=== PATIENT | female | born 1955 | race Caucasian/White ===

== ENCOUNTER 2019-12-03 17:00 | Outpatient (CLI) | payer BC, SELFPAY ==
--- NOTE | ~2019-12-03 | XR_ITS ---
EXAMINATION: XR chest 2V, XR chest BI decubitus DATE: 12/03/2019 17:31 INDICATION: Right lower lobe lung cancer presenting with shortness of breath. TECHNIQUE: 1. PA and lateral views of the chest were obtained. 2. Left and right lateral decubitus views of the chest were obtained. COMPARISON: 05/09/2017 FINDINGS: Postoperative changes in the right lower lobe with streaky likely scarring extending from the hilum t owards a suture line at the central aspect of the right hemidiaphragm. There is some blunting at the right costophrenic angle which persists on the left lateral decubitus image and without blunting at t he posterior sulci consistent with pleural parenchymal scarring rather than pleural effusion. No othe r airspace opacities, pulmonary edema, pleural effusion or pneumothorax. The cardiomediastinal silhou ette is normal. Partially visualized abdominal aortic endoluminal stent graft. Moderate thoracic spon dylosis. IMPRESSION: 1. Suture line and scarring at the right lung base likely related to resection of a reported right lo wer lobe lung cancer. No other acute cardiopulmonary disease. Reviewed, dictated and finalized at location A. TENDER IMPRESSION: 1. Suture line and scarring at the right lung base likely related to resection of a reported right lower lobe lung cancer. No other acute cardiopulmonary dise ase.
== END 2019-12-03 17:01 | disposition home or self-care (01) ==
LOC: ANHIMG 17:03
PROVIDERS: PCP Family Medicine; Visit Provider Family Medicine
DX: C34.90 Malignant neoplasm of unspecified part of unspecified bronchus or lung (principal); J44.9 Chronic obstructive pulmonary disease, unspecified; R06.02 Shortness of breath; Z98.890 Other specified postprocedural states
CPT/HCPCS: 71045; 71046

== ENCOUNTER 2019-12-29 10:49 | Outpatient (CLI) | payer BC, SELFPAY ==
--- NOTE | ~2019-12-29 | PE_ITS ---
EXAMINATION: PET skull to mid thigh DATE: 12/29/2019 13:06 INDICATION: Lung nodule. TECHNIQUE: Blood glucose level was 96 mg/dL. 7.929 mCi of 18-fluorodeoxyglucose (18-FDG) was administ ered i.v. Low dose computed tomography (CT) images were acquired from the base of the brain to the pr oximal thighs for attenuation correction and anatomic localization. Automated exposure control was em ployed. Dose-length product (DLP) was 1193 mGy-cm. Positron emission tomography (PET) images were acq uired in the same distribution. COMPARISON: PET/CT 03/16/2019, chest CT 02/03/2019, abdomen and pelvis CT 05/09/2017, chest 2 views 020 FINDINGS: Head/neck: There is increased activity in the glottis without CT correlate, likely physiologic. There is a 2.0 x 1.5 cm right supraclavicular lymph node with maximum SUV of 12.3. There are normal-sized left supraclavicular nodes with mildly increased activity. Chest: There is mild emphysema. There are small pleural effusions. There is an ill-defined right kuldip r mass with increased activity with complete collapse of right middle lobe with increased activity. T here are greater than 50 scattered nodules in the lungs measuring up to 10 mm. Some of the nodules de monstrate increased activity. There are mild patchy ground glass opacities scattered in the lungs. Th e heart size is normal. There are coronary artery calcifications. There is a moderate-sized pericardi al effusion. There is mediastinal and bilateral hilar lymphadenopathy with increased activity. There is a normal-sized right axillary lymph node with increased activity. There are normal-sized and mildl y enlarged pericardial lymph nodes with increased activity. There are numerous scattered foci of inc reased activity in bone without CT correlate. There is increased activity in right anterior third rib correlating with a lytic lesion by CT. Abdomen/pelvis/proximal thighs: There are innumerable ill-defined masses scattered in the liver with increased activity. The spleen, pancreas, and adrenal glands are normal. The kidneys are normal. Ther e is a stable 5.1 cm fusiform aneurysm of infrarenal aorta with stent graft in expected position. The re is gastrohepatic, periceliac, periportal, and aortocaval lymphadenopathy with increased activity. There are numerous scattered foci of increased activity in bone without CT correlate. IMPRESSION: 1. Right lung hilar mass, pulmonary nodules, liver masses, bone lesions, and chest and abdominal lymp hadenopathy, consistent with metastatic disease. 2. Right lung middle lobe collapse, new from 12/03/2019. Increased activity in the right middle lobe preciado ggests postobstructive pneumonia. Reviewed, dictated and finalized at location A. E SCIENTIST IMPRESSION: 1. Right lung hilar mass, pulmonary nodules, liver masses, bone lesions, and ch est and abdominal lymphadenopathy, consistent with metastatic disease. 2. Right lung middle lobe collapse, new from 12/03/2019. Increased activity in th e right middle lobe suggests postobstructive pneumonia.
[2019-12-29 11:39] LABS: Glucose Point of Care 96 (65-105)
== END 2019-12-29 10:50 | disposition home or self-care (01) ==
PROVIDERS: PCP Family Medicine
DX: R91.1 Solitary pulmonary nodule (principal); Z85.118 Personal history of other malignant neoplasm of bronchus and lung; R91.8 Other nonspecific abnormal finding of lung field; R16.0 Hepatomegaly, not elsewhere classified; M89.9 Disorder of bone, unspecified; R59.0 Localized enlarged lymph nodes; J98.19 Other pulmonary collapse
CPT/HCPCS: 78815; A9552

== ENCOUNTER 2020-01-23 15:59 | Inpatient (IN) | payer BC, SELFPAY ==
[2020-01-23] VITALS (11 sets, daily range): BP systolic 104–132; BP diastolic 56–84; PULSE 55–115; RESP 20–29; TEMP 36.7–36.9; O2SAT 94–99; BMI 39.4
--- NOTE | ~2020-01-23 | XR_ITS ---
XR chest 1V portable DATE: 01/26/2020 08:30 INDICATION: Respiratory failure. Hypoxemia. Pneumonia. TECHNIQUE: Portable upright AP chest on 01/26/2020 at 0829 hours COMPARISON: 01/25/2020 portable AP chest at 1409 hours 01/23/2020 portable AP chest 12/03/2019 bilateral decubitus views 12/03/2021 view chest FINDINGS: Since 12/03/2019 there is pulmonary vascular and interstitial prominence suggesting congestiv e changes, pulmonary interstitial edema. There are patchy bilateral pulmonary infiltrates, most promi nent in the mid and lower lung zones and interval prominent right pleural effusion and associated rig ht lower lung atelectasis. Heart size appears within normal limits. Diffuse osteopenia. IMPRESSION: Pulmonary vascular and interstitial prominence and extensive patchy infiltrates in the bartolome ngs and prominently increased right pleural effusion since 12/03/2019. Different diagnosis includes con gestive changes, pulmonary edema, as well as pneumonia. Reviewed, dictated and finalized at location B. IMPRESSION: Pulmonary vascular and interstitial prominence and extensive patchy infiltrates in the lungs and prominently increased right pleural effusion sinc e 12/03/2019. Different diagnosis includes congestive changes, pulmonary edema, a s well as pneumonia.
--- NOTE | ~2020-01-23 | XR_ITS ---
EXAMINATION: XR chest 1V portable INDICATION: Increased shortness of breath TECHNIQUE: Portable AP chest at 1409 hours COMPARISON: 01/23/2020 FINDINGS: There is a stable moderate-sized right pleural effusion. Stable airspace opacities are pres ent in the mid and lower lung zones. There is no pneumothorax. The heart size is normal. Multiple sta ble pulmonary nodules are again identified, consistent with metastatic disease. IMPRESSION: 1. Stable airspace opacities of the mid and lower lung zones, consistent with atelectasis versus pneu monia. 2. Moderate-sized left pleural effusion, stable. Reviewed, dictated and finalized at location A. IMPRESSION: 1. Stable airspace opacities of the mid and lower lung zones, consistent with a telectasis versus pneumonia. 2. Moderate-sized left pleural effusion, stable.
--- NOTE | ~2020-01-23 | XR_ITS ---
EXAMINATION: XR chest 1V portable DATE: 01/23/2020 17:00 INDICATION: Shortness of breath. TECHNIQUE: A single frontal view of the chest was obtained. COMPARISON: Chest 2 views 12/03/2019, PET CT 12/29/2019 FINDINGS: There is a moderate-sized right pleural effusion. There are airspace opacities at the lung bases. There are scattered nodules throughout the lungs. No pneumothorax. The heart size is normal. IMPRESSION: 1. Worsened airspace opacities at right lung base, consistent with atelectasis versus pneumonia. 2. Worsened moderate-sized right pleural effusion 3. Widespread pulmonary nodules, consistent with metastatic disease. Reviewed, dictated and finalized at location A.
--- NOTE | 2020-01-23 16:07 | ED.SOB ---
HPI - SOB/Dyspnea General Chief Complaint: Shortness of Breath/Dyspnea Stated Complaint: sob Time Seen by Provider: 01/23/20 16:07 Source: patient and RN notes reviewed Mode of arrival: EMS Limitations: no limitations History of Present Illness HPI Narrative: Pt is a 64 y/o female with a Hx of COPD and lung cancer, who presents to the ED via EMS with c/o SOB starting several weeks ago. She notes that she developed a complete rt pneumothorax secondary to a chest surgery roughly one month ago. Pt states that she has had difficulty breathing ever since, and notes that she hasn't been able to receive her prescribed breathing treatments due to an insurance complication. She reports diaphoresis accompanying her SOB, but denies any CP, fever, chills, or productive cough. Pt states that she hasn't been able to sleep for the past 3 days due to her symptoms. She notes that she is currently following with an oncologist at [facility]. MD elicited complaint: shortness of breath Pertinent past history: COPD and other (lung cancer) Onset (ago): week(s) (several) Context: other (recent rt pneumothorax) Known history of: COPD and other (lung cancer) Associated symptoms: diaphoresis Related Data Home Medications Medication Instructions Recorded Confirmed gabapentin 300 mg capsule 300 mg PO TID 10/01/19 hydrocodone 5 mg-acetaminophen 325 1 tablet PO Q6H PRN 10/01/19 mg tablet meloxicam 15 mg tablet 15 mg PO DAILY PRN 10/01/19 tizanidine 4 mg capsule 4 mg PO ONCE PRN cap 10/01/19 Allergies Allergy/AdvReac Type Severity Reaction Status Date / Time No Known Allergies Allergy Verified 01/23/20 16:03 Review of Systems Review of Systems: All systems reviewed & are unremarkable except as noted in HPI and below Constitutional: Constitutional: Denies chills and Denies fever(s) Cardiovascular: Cardiovascular: Denies chest pain and Reports diaphoresis Respiratory: Respiratory: Denies cough and Reports dyspnea PMFSH Past Medical History Medical History Abdominal aortic aneurysm (AAA) greater than 5.0 cm in diameter in female 11-18-19 endovascular repair with raji/ Walter Garcia M.D. Cervical dysplasia (~1989) Closed fracture of left wrist (~2006) COPD (chronic obstructive pulmonary disease) Depression with anxiety Fatty liver HLD (hyperlipidemia) LGSIL (low grade squamous intraepithelial dysplasia) Non-small cell lung cancer Pneumothorax, right Splenic cyst Squamous cell hyperplasia of vulva Surgical History Surgical History H/O wrist surgery History of colposcopy (~2001) History of endovascular stent graft for abdominal aortic aneurysm (AAA) 5cm infrarenal/ 09-14-19 endovascular repair with stent/ Walter Garcia M.D. History of lung surgery non small cell cancer/ resected 2018 Hx of spinal surgery Hx of tonsillectomy Family History Family History (Updated 08/28/18 @ 10:19 by DOCTOR UNKNOWN) Mother Hypertension Family history of elevated blood lipids Grandparent Carcinoma of colon Family history of malignant neoplasm of male breast Family history of malignant neoplasm of breast Social History Social History Smoking status: Current every day smoker Second hand tobacco smoke exposure: No Alcohol intake: current Exam Narrative: Exam Narrative: GENERAL: ill-appearing, well-nourished, and in moderate distress. HEAD: Normocephalic, atraumatic. ENT: Mucous membranes moist. CHEST: Diffused wheezing. Moderate respiratory distress. HEART: Tachycardic and regular. Normal peripheral pulses. ABDOMEN: Soft, nontender, nondistended. EXTREMITIES: Normal range of motion. No edema. SKIN: Warm, dry, no rash. NEURO: Alert and oriented x3. PSYCH: Normal mood and affect. Course Course Emergency Course: Unable to get the patient transferred to [facility]
[2020-01-23 16:09] LABS: Base Excess ABG 4.3 mEq/l (+/-2.0); Fractional Inspired Oxygen 40 %; HCO3 ABG 27.9 mEq/l (22.0-26.0); Methemoglobin ABG 0.3 %THb (0-1.5); Oxygen Content ABG 17.6 %vol (16.0-22.0); Oxygen Saturation ABG 96.6 % (95.0-100.0); PCO2 ABG 38.2 mmHg (35.0-45.0); PO2 ABG 80.3 mmHg (80.0-100.0); PO2 FiO2 Ratio Arterial Blood 2.01 %; Reduced Hemoglobin 4.7 %THb (0-5.0); Total Hemoglobin 13.3 g/dL (12.0-18.0); pH ABG 7.481 (7.350-7.450)
[2020-01-23 16:10] LABS: Device NON-INVASIVE VENT; Modified Allen's Test Pass; Site Drawn LEFT RADIAL
[2020-01-23 16:11] LABS: Non-Invasive Expiratory Pressure 6 CMH2O; Non-Invasive Inspiratory Pressure 14 CMH2O; Non-Invasive Vent Rate 4 /MIN
[2020-01-23] MEDS: ALBUTEROL SULFATE NEB 2.5 MG/0.5 ML INH 5 MG INHALATION (16:16)
[2020-01-23] MEDS: IPRATROPIUM BR 0.02% INH SOLN 0.5 MG/2.5 ML VIAL INHALATION (16:16)
--- NOTE | 2020-01-23 16:26 | ECG_ITS ---
Measurements Intervals [place] Rate: 108 P: 16 WI: 145 QRS: 263 QRSD: 86 T: -16 QT: 315 QTc: 423 Interpretive Statements SINUS TACHYCARDIA VENTRICULAR PREMATURE COMPLEX RIGHT AXIS DEVIATION LOW QRS VOLTAGE- DIFFUSE LEADS BORDERLINE T WAVE ABNORMALITY- ANT/INF LEADS BASELINE ARTIFACT- I, II, III, AVR, AVL, AVF, V5-V6 ABNORMAL ECG Electronically Signed On 01-24-2020 7:45:23 CDT by Thomas Yeung D.O.
[2020-01-23 16:40] LABS: Basophils Absolute Auto 0.2 K/mm3 (0.0-0.1); Basophils Percent Auto 0.6 % (0.2-1.2); Eosinophils Absolute Auto 3.2 K/mm3 (0-0.3); Eosinophils Percent Auto 11.4 % (0-4.4); Hematocrit 41.6 % (37.0-47.0); Hemoglobin 12.8 g/dL (12.0-15.0); Immature Granulocyte Absolute 1.23 K/mm3 (0.00-0.031); Immature Granulocyte Percent A 4.4 % (0-0.5); Lymphocytes Absolute Auto 0.59 K/mm3 (0.9-3.2); Lymphocytes Percent Auto 2.1 % (18.3-44.2); Mean Corpuscular HGB Conc 30.8 g/dl (32-36); Mean Corpuscular Volume 84.4 fl (80-100); Mean Platelet Volume 11.1 fl (7.4-10.4); Monocytes Absolute Auto 0.9 K/mm3 (0.1-0.6); Neutrophils Percent Auto 78.5 % (45.5-73.1); Platelet Count Result 171 k/mm3 (150-375); Red Blood Count 4.93 M/mm3 (4.2-5.4); Red Cell Distribution Width 17.1 % (11.5-14.5)
[2020-01-23 16:53] LABS: Alanine Aminotransferase 24 U/L (4-35); Albumin Level 3.1 g/dL (3.5-5.1); Alkaline Phosphatase 263 U/L (38-126); Aspartate Amino Transferase 27 U/L (14-36); Bilirubin,Total 0.5 mg/dL (0.2-1.3); Blood Urea Nitrogen 15 mg/dL (7-17); Calcium 7.8 mg/dL (8.4-10.2); Carbon Dioxide 27 mmol/L (22-30); Chloride 98 mmol/L (98-107); Estimated CRCL calculation 74 ml/min; Estimated Glomerular Filt Rate > 60; Glucose 191 mg/dL (65-105); Potassium 2.9 mmol/L (3.4-5.0); Sodium 137 mmol/L (137-145)
[2020-01-23 18:05] LABS: Lactic Acid Reflex 3.4 mmol/L (0.7-2.1)
[2020-01-23 20:53] LABS: Reflex Lactic Acid Yes or No Add Lactic
--- NOTE | 2020-01-23 21:20 | ADMGEN ---
This patient, Anjali Basurto, was admitted to IMU Room 214-01 at 2052 on 01-23-20. Patient/family oriented to hospital policies and general routines including ID bracelet, bed and alarms, visiting hours, pain management, procedures, bathroom and other care routines, personal items, smoking policy, room service/diet, and visiting hours. Valuables list has been completed. Information on how to activate the Rapid Response Team has been discussed. Patient/Family are encouraged to report perceived risks to care and to ask questions if they do not understand what they are told or what they should do.
[2020-01-23 21:55] LABS: Lactic Acid 3.6 mmol/L (0.7-2.1)
[2020-01-23] MEDS: SODIUM CHLORIDE 0.9% IV 1,000 ML 125 ML IV CONT (22:41)
--- NOTE | 2020-01-23 23:19 | PM.IMHP ---
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 The patient is known to have Stage IV NSCLC with multiple bilateral pulmonary nodules, adenopathy and followed by Dr. Jensen. She tells me that she was intubated and placed on mechanical ventilation at [facility] while she was there. She has completed 10 sessions of radiation therapy for her lung cancer and her last session was last week. She was on Zosyn IV while she was at [facility] and just completed a course of augmentin 1 week ago. Today she took her final prednisone tablet. The patient presented to the hospital today complaining of severe dyspnea that has been progressive in nature. She has not been able to get home oxygen or receive her respiratory treatment because of insurance issues. On arrival to the ER the patient was found to be severely dyspneic, diaphoretic w/ a RR in the upper 20s. The patient has had an ongoing productive cough which she states hasn't changed. Associated symptoms include pleuritic rib discomfort w/ coughing and wheezing++ She denies any chest pain, fever, palpitations, sore throat, headache, nausea, vomiting, abdominal pain, diarrhea, rectal bleeding or LE pain/redness. She just underwent LE doppler U/S yesterday at [facility] but doesn't know the results. The patient was admitted to our hospitalist service for her acute respriatory failure. No other complaints. Review of Systems Review of Systems: All systems reviewed & are unremarkable except as noted in HPI and below PMFSH Past Medical History Medical History Abdominal aortic aneurysm (AAA) greater than 5.0 cm in diameter in female 11-18-19 endovascular repair with raji/ Walter Garcia M.D. Acute respiratory failure Cervical dysplasia (~1989) Closed fracture of left wrist (~2006) COPD (chronic obstructive pulmonary disease) Depression with anxiety Fatty liver HLD (hyperlipidemia) LGSIL (low grade squamous intraepithelial dysplasia) Non-small cell lung cancer Pneumothorax, right Splenic cyst Squamous cell hyperplasia of vulva Surgical History Surgical History H/O wrist surgery History of colposcopy (~2001) History of endovascular stent graft for abdominal aortic aneurysm (AAA) 5cm infrarenal/ 09-14-19 endovascular repair with stent/ Walter Garcia M.D. History of lung surgery non small cell cancer/ resected 2019 Hx of spinal surgery Hx of tonsillectomy Family History Family History Mother Hypertension Family history of elevated blood lipids Grandparent Carcinoma of colon Family history of malignant neoplasm of male breast Family history of malignant neoplasm of breast Social History Social History Smoking status: Former smoker Tobacco type: cigarettes Second hand tobacco smoke exposure: Yes Smoking end date: 11/28/19 Alcohol intake: former Substance use: never Spiritual care concerns: No Agree to blood products: Yes Meds Home Medications and Allergies Home Medications Medication Instructions Recorded Confirmed Type gabapentin 300 mg capsule 300 mg PO TID 10/01/19 01/23/20 History hydrocodone 5 mg-acetaminophen 325 1 tablet PO Q6H PRN 10/01/19 01/23/20 History mg tablet meloxicam 15 mg tablet 15 mg PO DAILY PRN 10/01/19 01/23/20 History tizanidine 4 mg capsule 4 mg PO DAILY PRN cap 10/01/19 01/24/20 History atorvastatin 80 mg tablet 80 mg PO DAILY #90 tablet 11/03/19 01/23/20 Rx duloxetine 30 mg capsule,delayed 60 mg PO DAILY
[2020-01-23] MEDS: LORAZEPAM INJ 2 MG/ML VIAL 0.5 MG IV PUSH (23:29)
[2020-01-24] VITALS (26 sets, daily range): BP systolic 85–117; BP diastolic 42–79; PULSE 71–183; RESP 16–29; TEMP 35.7–36.9; O2SAT 92–98
[2020-01-24] MEDS: GABAPENTIN 300 MG CAPSULE PO ×4 (00:54→16:02)
[2020-01-24] MEDS: IPRATROPIUM BR 0.02% INH SOLN 0.5 MG/2.5 ML VIAL INHALATION ×3 (01:41→20:08)
[2020-01-24] MEDS: ALBUTEROL SULFATE NEB 2.5 MG/0.5 ML INH 5 MG INHALATION ×3 (01:41→20:08)
--- NOTE | 2020-01-24 07:43 | ECG_ITS ---
Measurements Intervals [place] Rate: 162 P: SD: 0 QRS: 85 QRSD: 94 T: 0 QT: 220 QTc: 362 Interpretive Statements ATRIAL FIBRILLATION WITH RAPID VENTRICULAR RESPONSE LOW QRS VOLTAGE- LIMB LEADS BORDERLINE ST-T WAVE ABNORMALITY- INF/LAT LEADS ABNORMAL ECG Electronically Signed On 01-24-2020 14:49:38 CDT by Thomas Yeung D.O.
[2020-01-24 08:24] LABS: Hemoglobin A1C 6.2 % (<5.7)
[2020-01-24] MEDS: FOLIC ACID 1 MG TABLET PO (08:44)
[2020-01-24] MEDS: ATORVASTATIN 40 MG TABLET 80 MG PO (08:44)
[2020-01-24] MEDS: DULOXETINE HCL 30 MG CAPSULE.DR 60 MG PO (08:44)
[2020-01-24] MEDS: CLOTRIMAZOLE 10 MG TROC MUCOUS MEM ×4 (08:44→17:18)
[2020-01-24 09:35] LABS: Hemoglobin 12.8 g/dL (12.0-15.0); Mean Corpuscular HGB Conc 28.4 g/dl (32-36); Mean Corpuscular Hemoglobin 25.9 pg (26-34); Mean Corpuscular Volume 91.1 fl (80-100); Platelet Count Result 149 k/mm3 (150-375); Red Blood Count 4.94 M/mm3 (4.2-5.4); Red Cell Distribution Width 17.6 % (11.5-14.5); White Blood Count 27.5 K/mm3 (4.5-10.0)
--- NOTE | 2020-01-24 09:38 | WPDONCCN ---
Assessment and Plan Assessment and plan (1) Acute respiratory failure: Qualifiers: Respiratory failure complication: hypoxia Qualified Code(s): J96.01 - Acute respiratory failure with hypoxia Code(s): J96.00 - Acute respiratory failure, unspecified whether with hypoxia or hypercapnia Status: Acute Assessment and Plan: THE PATIENT HAS HAD A VERY TENUOUS RESPIRATORY STATUS FOR SOME TIME. Her current deterioration is probably in part due to atelectasis plus pneumonia and slowly progressive lung cancer. She continues to smoke. I agree with pulmonary consultation and intravenous antibiotics. I think we should follow her C reactive protein to see if he gets better with antibiotics. I think she should be considered for inpatient Keytruda immunotherapy. She may have to be transferred to [facility] back under the care of to accomplish that. Her PDL1 is with very high and it is likely that this immunotherapy despite having active infection may be much more beneficial than harmful even in the very short time frame. We will follow this patient with you. HPI Data of Consult Date/Time: 01/24/20 09:38 Requesting Physician: Jones Montgomery MD Primary Care Provider: Padmaja Chester MD Consult Narrative Narrative: Anjali Basurto is a 64 year old female With metastatic non-small cell lung cancer followed by Dr. Dong. She finished radiation therapy for recent recurrence. She had a recent pneumonia that required hospitalization. She was due to start Keytruda tomorrow. She was admitted with respiratory failure. We were consulted for suspicion of progressive non-small cell lung cancer and leukocytosis.She has had leukocytosis since her admission earlier this month at the outside hospital. She was on steroids. These were being tapered. She had leukocytosis at presentation to the emergency room here at [facility] which time she had evidence of probable pneumonia. Her white blood count actually is lower than what it was measured on 01/11/2020. She has predominantly neutrophils as anticipated with pneumonia. Review of Systems Constitutional: Constitutional: Reports weakness ENT: Reports system reviewed and no additional complaints, except as documented Cardiovascular: Cardiovascular: Reports no additional cardiovascular complaints Respiratory: Respiratory: Reports as per HPI Gastrointestinal: Gastrointestinal: Reports no additional gastrointestinal complaints Genitourinary: Genitourinary: Reports no additional female genitourinary complaints Musculoskeletal: Musculoskeletal: Reports no additional musculoskeletal complaints Integumentary/Breasts: Skin/Breast: Reports system reviewed and no additional complaints, except as docu Neurologic: Reports system reviewed and no additional complaints, except as documented Psychiatric: Psychiatric: Reports no additional psychiatric complaints PMFSH Past Medical History Medical History Abdominal aortic aneurysm (AAA) greater than 5.0 cm in diameter in female 09-14-19 endovascular repair with stent/ Walter Garcia M.D. Cervical dysplasia (~1989) Closed fracture of left wrist (~2006) COPD (chronic obstructive pulmonary disease) Depression with anxiety Fatty liver HLD (hyperlipidemia) LGSIL (low grade squamous intraepithelial dysplasia) Non-small cell lung cancer Pneumothorax, right Splenic cyst Squamous cell hyperplasia of vulva Surgical History Surgical History H/O wrist surgery History of colposcopy (~2001) History of endovascular stent graft for abdominal aortic aneurysm (AAA) 5cm infrarenal/ 09-14-19 endovascular repair with stent/ Walter Garcia M.D. History of lung surgery non small cell cancer/ resected 2019 Hx of spinal surgery Hx of tonsillectomy Family History Family History (Reviewed 0
--- NOTE | 2020-01-24 09:43 | PM.CNCAR ---
Assessment and Plan Assessment and plan (1) Acute respiratory failure: Qualifiers: Respiratory failure complication: hypoxia Qualified Code(s): J96.01 - Acute respiratory failure with hypoxia Code(s): J96.00 - Acute respiratory failure, unspecified whether with hypoxia or hypercapnia Status: Acute Assessment and Plan: Due to COPD, possible pneumonia, lung cancer. (2) History of endovascular stent graft for abdominal aortic aneurysm (AAA): Code(s): Z95.828 - Presence of other vascular implants and grafts Status: Acute (3) Mixed hyperlipidemia: Code(s): E78.2 - Mixed hyperlipidemia Status: Chronic (4) Atrial fibrillation: Code(s): I48.91 - Unspecified atrial fibrillation Status: Acute Assessment and Plan: New onset atrial fibrillation with RVR. Due to COPD/respiratory failure and possible sepsis. [id number] 2, therefore, Aspirin EC 325 mg daily will be sufficient to minimize cardioembolism. Given low normal BP, start Amiodarone load and drip to cardiovert to sinus rhythm or at least slow HR. Will add Metoprolol 12.5 mg q 6 hours with parameters to hold if SBP<100 mmHg. History of Present Illness History of Present Illness Consult date/time: 01/24/20 09:43 Reason for consult: New onset Atrial fibrillation with RVR. 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 The patient is known to have Stage IV NSCLC with multiple bilateral pulmonary nodules, adenopathy and followed by Dr. Jensen. She tells me that she was intubated and placed on mechanical ventilation at [facility] while she was there. She has completed 10 sessions of radiation therapy for her lung cancer and her last session was last week. The patient presented to the hospital yesterday complaining of severe dyspnea that has been progressive in nature. She has not been able to get home oxygen or receive her respiratory treatment because of insurance issues. On arrival to the ER the patient was found to be severely dyspneic, diaphoretic w/ a RR in the upper 20s. The patient has had an ongoing productive cough which she states hasn't changed. Associated symptoms include pleuritic rib discomfort w/ coughing and wheezing. Denies fever or chills but she does have night sweats. This morning it was noted on telemetry she went into rapid atrial fibrillation in 170-180 bpm and she is in it currently with low normal BP. She normally can walk only minimal distance due to chronic DRAKE. She quit smoking in Nov 2019. She had lexiscan nuclear stress test on 09/09/19 which was normal without ischemia. Her echo on 09/09/19 which were essentially normal with EF 60-65%, mild LVH, grade I diastolic dysfunction (E/e' 8). PET scan on 12/29/19 shows right hilar mass, pulm nodules, liver massess, bone lesions, chest and abdominal lymphadenopathy c/w metastasis, and right lung middle lobe collapse and increase activity in RML s/o postobstructive pneumonia. Reason For Visit: pneumonia, lung ca, acute respiratory failure Review of Systems Review of Systems: All systems reviewed & are unremarkable except as noted in HPI and below Constitutional: Constitutional: Denies chills and Reports night sweats Cardiovascular: Cardiovascular: Reports as per HPI, Reports chest pain and Denies leg edema Respiratory: Respiratory: Reports as per HPI, Reports cough, Reports dyspnea on exertion and Reports wheezing Gastrointestinal: Gastrointestinal: Reports as per HPI and Denies abdominal pain Genitourinary: Genitourinary: Reports as per HPI Neurologic: Reports as per HPI and Denies Abnormal speech present PMFSH Past Medical Histo
[2020-01-24 09:49] LABS: Alanine Aminotransferase 19 U/L (4-35); Albumin Level 2.7 g/dL (3.5-5.1); Alkaline Phosphatase 216 U/L (38-126); Aspartate Amino Transferase 22 U/L (14-36); Bilirubin,Total 0.4 mg/dL (0.2-1.3); Blood Urea Nitrogen 13 mg/dL (7-17); Calcium 7.7 mg/dL (8.4-10.2); Carbon Dioxide 22 mmol/L (22-30); Chloride 106 mmol/L (98-107); Estimated CRCL calculation 69 ml/min; Estimated Glomerular Filt Rate > 60; Glucose 144 mg/dL (65-105); Magnesium 2.5 mg/dL (1.6-2.3); Potassium 3.4 mmol/L (3.4-5.0); Sodium 139 mmol/L (137-145)
[2020-01-24 09:57] LABS: Glucose Point of Care 129 (65-105)
[2020-01-24] MEDS: AMIODARONE 150 MG/D5W 100 ML 150 MG/100 ML BAG 600 MG IV CONT (10:05)
[2020-01-24] MEDS: AMIODARONE 360 MG/D5W 200 ML 360 MG/200 ML BAG 33.3 MG IV CONT (10:05)
[2020-01-24] MEDS: SODIUM CHLORIDE 0.9% IV 1,000 ML 125 ML IV CONT (10:06)
--- NOTE | 2020-01-24 10:35 | ECG_ITS ---
Measurements Intervals [place] Rate: 91 P: -24 IN: 153 QRS: 80 QRSD: 89 T: 65 QT: 348 QTc: 430 Interpretive Statements SINUS RHYTHM VENTRICULAR PREMATURE COMPLEX LOW QRS VOLTAGE- DIFFUSE LEADS BORDERLINE ST-T WAVE ABNORMALITY- DIFFUSE LEADS BASELINE WANDER- V6 BORDERLINE ECG Electronically Signed On 01-24-2020 14:52:36 CDT by Thomas Yeung D.O.
[2020-01-24 11:42] LABS: Glucose Point of Care 119 (65-105)
--- NOTE | 2020-01-24 15:53 | PM.CNPUL ---
Assessment and Plan Assessment and plan (1) Pneumonia: Qualifiers: Laterality: right Lung location: unspecified part of lung Pneumonia type: due to unspecified organism Qualified Code(s): J18.9 - Pneumonia, unspecified organism Code(s): J18.9 - Pneumonia, unspecified organism Status: Acute Assessment and Plan: Bilateral infiltrates in a 64 yo woman with Stage IV lung cancer resected in 2019, 10 radiation treatments this month, with a recent admission to another hospital with pneumonia, hypoxemia, was not able to get out-patient O2 set up. She has high WBC, is being treated for community acquired pneumonia with (2) Acute respiratory failure: Qualifiers: Respiratory failure complication: hypoxia Qualified Code(s): J96.01 - Acute respiratory failure with hypoxia Code(s): J96.00 - Acute respiratory failure, unspecified whether with hypoxia or hypercapnia Status: Acute Assessment and Plan: O2 requirement is modest. She is benefitting from positive pressure, decreasing the work of breathing. Thsi may be acuteon chronic resp failure, as she says that she was not able to get O2 set up at the time of her last discharge Jan 02. History of Present Illness History of Present Illness Consult date: 01/24/20 Requesting physician: Jessica Esparza MD Reason for consult: pneumonia Chief complaint: pneumonia, lung ca, acute respiratory failure Narrative: NEW CONSULT : pneumonia, acute respiratory failure; Stage IV NSCLC This 64 yo female recently stopped smoking Nov 28. She was diagnosed with Stage IV non-small cell lung cancer, managed by Dr. Dong at [facility]. At her Dec 29 visit, she was weak and short of breath, was admitted from the office to [facility] Dec 29 -8 , was not on a vent. She received 10 radiation treatments afterwards, has been feeling weak, short of breath, same cough with small amounts of yellow sputum; she denies fever, chills, N/V/D, loss of smell, change in appetite, sore throat or nasal drainage. 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 She does not have Home O2, or a nebulizer although O2 was going to be arranged at her discharge from [facility]. She uses inhalers here and there, is not on a regular regimen. Lower extremity dopplers were performed yesterday at [facility], results pending. Since arriving here, she has been on BiPAP which makes her feels much better. She says that she can finally breathe with less effort. She wheezes often. Has had no hemoptysis. She Has had pleurititic discomfort in the substernal and left anterior chest wall. 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 Social: Quit tobacco Nov 2019, smoked for decades. Has one child, 5 grandkids. Review of Systems Review of Systems: Narrative: No change in appetitie. No fever, chills, dysphagia, weight loss, N/V/D. No dysuria. No muscle aches, joints pains, rashes. Constitutional: Constitutional: Reports weakness Eyes: Eyes: Reports no additional eye complaints PMFSH Past Medical History Medical History Abdominal aortic aneurysm (AAA) greater than 5.0 cm in diameter in female 09-14-19 endovascular repair with stent/ Walter Garcia M.D. Cervical dysplasia (~1989) Closed fracture of left wrist (~2006) COPD (chronic obstructive pulmonary disease) Depression with anxiety Fatty liver HLD (hyperlipidemia) LGSIL (low grade squamous intraepithelial dysplasia) Non-small cell lung cancer Pneumothorax, right Splenic cyst Squamous cell hyperplasia of vulva Surgical History Surgical History H/O wrist surgery History of colposcopy (~2001) History of endovascular stent graft for abdominal aortic aneurysm (AAA) 5cm infrarenal/ 09-14-19 endovascular repair with raji/ Walter Garcia M.D. H
[2020-01-24] MEDS: AMIODARONE 360 MG/D5W 200 ML 360 MG/200 ML BAG 16.7 MG IV CONT (16:01)
--- NOTE | 2020-01-24 16:09 | PM.IMPN ---
Progress Note: A&P Assessment and Plan (1) Acute respiratory failure: Qualifiers: Respiratory failure complication: hypoxia Qualified Code(s): J96.01 - Acute respiratory failure with hypoxia Code(s): J96.00 - Acute respiratory failure, unspecified whether with hypoxia or hypercapnia Status: Acute Assessment and Plan: 01/24/20 16:09 Patient is 64-year-old female is known to have Stage IV NSCLC with multiple bilateral pulmonary nodules, patient seen by [facility] and being treated, presented emergency department with complaint shortness of breath and cough is found to have multi focal pneumonia possibly obstructive secondary to mass, patient developed new onset atrial fibrillation most likely secondary to shortness of breath patient seen by wax pattern repairer started patient on immune drip now the rate is under control, the patient is feeling much better compared to when she arrived denies any chest pain palpitation fever or chills (2) Severe sepsis: Code(s): A41.9 - Sepsis, unspecified organism; R65.20 - Severe sepsis without septic shock Status: Acute Assessment and Plan: Patient met the criteria upon arrival with leukocytosis tachycardia tachypnea most likely secondary to pneumonia patient is being treated ceftriaxone azithromycin patient is seen by apparatus cleaner and further recommendation to follow (3) Leukocytosis: Qualifiers: Leukocytosis type: unspecified Qualified Code(s): D72.829 - Elevated white blood cell count, unspecified Code(s): D72.829 - Elevated white blood cell count, unspecified Status: Acute Assessment and Plan: Most likely secondary pneumonia (4) Lactic acidosis: Code(s): E87.2 - Acidosis Status: Acute Assessment and Plan: Most likely secondary pneumonia shortness of breath (5) Abnormal glucose: Code(s): R73.09 - Other abnormal glucose Status: Acute Assessment and Plan: Will monitor (6) Emphysema with chronic bronchitis: Code(s): J44.9 - Chronic obstructive pulmonary disease, unspecified Status: Chronic Assessment and Plan: On clinically stable will continue updraft patient is seen by apparatus cleaner (7) Malignant neoplasm of unspecified part of unspecified bronchus or lung: Code(s): C34.90 - Malignant neoplasm of unspecified part of unspecified bronchus or lung Status: Chronic Assessment and Plan: Patient seen by oncologist being treated (8) Mixed hyperlipidemia: Code(s): E78.2 - Mixed hyperlipidemia Status: Chronic Assessment and Plan: Continue statin (9) Atrial fibrillation: Code(s): I48.91 - Unspecified atrial fibrillation Status: Acute Assessment and Plan: New onset atrial fibrillation seen by wax pattern repairer on amiodarone drip rate is trending down [id number] 2, wax pattern repairer started the patient on Aspirin EC 325mg further recommendation to follow, Subjective Date/time seen: 01/24/20 16:09 Patient is 64-year-old female is known to have Stage IV NSCLC with multiple bilateral pulmonary nodules, patient seen by [facility] and being treated, presented emergency department with complaint shortness of breath and cough is found to have multi focal pneumonia possibly obstructive secondary to mass, patient developed new onset atrial fibrillation most likely secondary to shortness of breath patient seen by wax pattern repairer started patient on immune drip now the rate is under control, the patient is feeling much better compared to when she arrived denies any chest pain palpitation fever or chills Review of Systems Review of Systems: All systems reviewed & are unremarkable except as noted in HPI and below Exam Narrative: Exam Narrative: Moderately obese Const: General: no acute distress and uncomfortable HENMT: General nose exam: Normal nares present Mouth: Yes moist mucous membranes Eyes: General:
[2020-01-24 16:39] LABS: Glucose Point of Care 123 (65-105)
[2020-01-24] MEDS: METOPROLOL TARTRATE 12.5 MG TABLET PO (20:14)
[2020-01-24 20:20] LABS: Glucose Point of Care 138 (65-105)
[2020-01-25] VITALS (26 sets, daily range): BP systolic 93–131; BP diastolic 44–80; PULSE 46–158; RESP 20–29; TEMP 35.8–36.6; O2SAT 92–98; BMI 42.7
[2020-01-25] MEDS: IPRATROPIUM BR 0.02% INH SOLN 0.5 MG/2.5 ML VIAL INHALATION ×4 (01:03→20:26)
[2020-01-25] MEDS: ALBUTEROL SULFATE NEB 2.5 MG/0.5 ML INH 5 MG INHALATION ×4 (01:03→20:26)
[2020-01-25] MEDS: AMIODARONE 360 MG/D5W 200 ML 360 MG/200 ML BAG 16.7 MG IV CONT ×2 (02:35→21:46)
[2020-01-25 04:56] LABS: Basophils Absolute Auto 0.1 K/mm3 (0.0-0.1); Basophils Percent Auto 0.5 % (0.2-1.2); Eosinophils Absolute Auto 3.5 K/mm3 (0-0.3); Hematocrit 36.1 % (37.0-47.0); Immature Granulocyte Absolute 1.07 K/mm3 (0.00-0.031); Immature Granulocyte Percent A 4.8 % (0-0.5); Lymphocytes Absolute Auto 0.69 K/mm3 (0.9-3.2); Lymphocytes Percent Auto 3.1 % (18.3-44.2); Mean Corpuscular HGB Conc 30.5 g/dl (32-36); Mean Corpuscular Hemoglobin 25.9 pg (26-34); Mean Corpuscular Volume 85.1 fl (80-100); Mean Platelet Volume 10.9 fl (7.4-10.4); Monocytes Absolute Auto 0.9 K/mm3 (0.1-0.6); Neutrophils Absolute Auto 15.8 K/mm3 (1.3-6.7); Neutrophils Percent Auto 71.6 % (45.5-73.1); Platelet Count Result 140 k/mm3 (150-375); Red Blood Count 4.24 M/mm3 (4.2-5.4); Red Cell Distribution Width 16.8 % (11.5-14.5); White Blood Count 22.1 K/mm3 (4.5-10.0)
[2020-01-25 05:17] LABS: Blood Urea Nitrogen 10 mg/dL (7-17); Calcium 7.5 mg/dL (8.4-10.2); Carbon Dioxide 29 mmol/L (22-30); Chloride 100 mmol/L (98-107); Estimated CRCL calculation 59 ml/min; Estimated Glomerular Filt Rate 56; Glucose 109 mg/dL (65-105); Potassium 2.8 mmol/L (3.4-5.0); Sodium 134 mmol/L (137-145)
[2020-01-25] MEDS: ASPIRIN 325 MG ENTERIC TABLET PO (07:47)
[2020-01-25] MEDS: ATORVASTATIN 40 MG TABLET 80 MG PO (07:47)
[2020-01-25] MEDS: METOPROLOL TARTRATE 12.5 MG TABLET PO ×2 (07:47→21:00)
[2020-01-25] MEDS: TIZANIDINE HCL 4 MG TABLET PO (07:47)
[2020-01-25] MEDS: FOLIC ACID 1 MG TABLET PO (07:48)
[2020-01-25] MEDS: DULOXETINE HCL 30 MG CAPSULE.DR 60 MG PO (07:48)
[2020-01-25] MEDS: GABAPENTIN 300 MG CAPSULE PO ×3 (07:48→16:21)
[2020-01-25 07:56] LABS: Glucose Point of Care 122 (65-105)
--- NOTE | 2020-01-25 08:11 | ECG_ITS ---
Measurements Intervals [place] Rate: 79 P: 34 [place]: 160 QRS: 81 QRSD: 88 T: 70 QT: 383 QTc: 440 Interpretive Statements SINUS RHYTHM LOW QRS VOLTAGE- DIFFUSE LEADS BORDERLINE T WAVE ABNORMALITY- ANT/LAT LEADS BORDERLINE ECG Electronically Signed On 01-25-2020 9:51:01 CDT by Thomas Yeung D.O.
--- NOTE | 2020-01-25 08:56 | PM.PNCARD ---
Progress Note: A&P Assessment and Plan (1) Atrial fibrillation: Code(s): I48.91 - Unspecified atrial fibrillation Status: Acute Assessment and Plan: New onset atrial fibrillation with RVR. Due to COPD/respiratory failure and possible sepsis. [id number] 2, therefore, Aspirin EC 325 mg daily will be sufficient to minimize cardioembolism. Given low normal BP, was started on Amiodarone load and drip to cardiovert to sinus rhythm or at least slow HR, which has restored sinus rhythm with a few recurrences. On Metoprolol 12.5 mg q 12 hours with parameters to hold if SBP<100 mmHg. After 24 hours of Amiodarone drip loading, will change to PO 200 mg BID. Replete potassium. Obtain EKG to check QT interval. (2) Acute respiratory failure: Qualifiers: Respiratory failure complication: hypoxia Qualified Code(s): J96.01 - Acute respiratory failure with hypoxia Code(s): J96.00 - Acute respiratory failure, unspecified whether with hypoxia or hypercapnia Status: Acute (3) Pneumonia: Qualifiers: Laterality: right Lung location: unspecified part of lung Pneumonia type: due to unspecified organism Qualified Code(s): J18.9 - Pneumonia, unspecified organism Code(s): J18.9 - Pneumonia, unspecified organism Status: Acute Assessment and Plan: On antibiotics. (4) Mixed hyperlipidemia: Code(s): E78.2 - Mixed hyperlipidemia Status: Chronic (5) History of endovascular stent graft for abdominal aortic aneurysm (AAA): Code(s): Z95.828 - Presence of other vascular implants and grafts Status: Acute Subjective Date/time seen: 01/25/20 08:56 Reports sob on oxygen but better than yesterday. Denies chest pain except when she coughs. Exam Const: General: no acute distress Neck: Neck: no JVD Carotids: no bruits Resp: Auscultation: rhonchi, wheezes and diminished lung sounds Cardio: Rate: regular rate Rhythm: regular rhythm Heart sounds: no murmurs GI: Inspection: non-distended Neuro: Speech: normal speech Extrem: Right lower extremity: no edema Left lower extremity: no edema Objective Data Vital Signs Vital Signs: Vital Signs - 24 hr 01/24/20 10:00 01/24/20 12:00 03/29/20 13:41 Temperature 96.2 F L Pulse Rate 167 H 99 87 Respiratory Rate 24 H Blood Pressure 98/75 L Pulse Oximetry 95 01/24/20 13:44 01/24/20 13:50 01/24/20 14:00 Temperature Pulse Rate 88 90 91 Respiratory Rate 20 24 H Blood Pressure Pulse Oximetry 97 01/24/20 16:00 01/24/20 17:41 01/24/20 20:00 Temperature 97.5 F L 97.8 F Pulse Rate 92 95 90 Respiratory Rate 16 18 Blood Pressure 89/59 L 98/56 L Pulse Oximetry 92 97 01/24/20 20:08 01/24/20 20:14 01/24/20 20:17 Temperature Pulse Rate 81 90 71 Respiratory Rate 18 18 Blood Pressure Pulse Oximetry 97 01/24/20 20:18 01/24/20 22:00 01/24/20 23:10 Temperature 97.9 F Pulse Rate 79 76 87 Respiratory Rate 18 22 H Blood Pressure 117/79 Pulse Oximetry 95 01/24/20 23:13 01/25/20 00:00 01/25/20 01:04 Temperature Pulse Rate 78 78 88 Respiratory Rate 29 H 29 H 20 Blood Pressure Pulse Oximetry 92 92 01/25/20 01:07 01/25/20 02:00 01/25/20 04:00 Temperature 97.8 F Pulse Rate 78 94 88 Respiratory Rate 23 H 24 H Blood Pressure 114/56 L Pulse Oximetry 92 93 01/25/20 05:31 01/25/20 07:47 01/25/20 07:53 Temperature Pulse Rate 84 102 H 70 Respiratory Rate 26 H Blood Pressure Pulse Oximetry 95 01/25/20 07:55 01/25/20 08:00 Temperature 97 F L Pulse Rate 102 H Respiratory Rate 23 H Blood Pressure 126/55 L Pulse Oximetry 95 94 Intake/Output Intake/Output: Intake & Output 01/22/20 01/23/20 01/24/20 01/25/20 23:59 23:59 23:59 23:59 Intake Total 522 5590 850 Output Total 600 2950 1450 Balance -78 2640 -600 Meds/Results Medications: Active Medications Generic Name Dose Route Start Last Admin Tr
[2020-01-25] MEDS: POTASSIUM CHLORIDE 20 MEQ PACKET (FOR LIQUID) 40 MEQ PO (09:35)
[2020-01-25 10:28] LABS: Base Excess ABG -0.5 mEq/l (+/-2.0); Fractional Inspired Oxygen 40 %; HCO3 ABG 23.5 mEq/l (22.0-26.0); Oxygen Content ABG 15.7 %vol (16.0-22.0); Oxygen Saturation ABG 94.3 % (95.0-100.0); Oxyhemoglobin 91.9 % THb (90.0-100.0); PCO2 ABG 36.7 mmHg (35.0-45.0); PO2 FiO2 Ratio Arterial Blood 1.73 %; Total Hemoglobin 12.1 g/dL (12.0-18.0); pH ABG 7.425 (7.350-7.450)
[2020-01-25 10:30] LABS: Device NON-INVASIVE VENT; Non-Invasive Expiratory Pressure 6 CMH2O; Non-Invasive Inspiratory Pressure 14 CMH2O; Non-Invasive Vent Rate 14 /MIN; Site Drawn LEFT BRACHIAL
[2020-01-25] MEDS: LORAZEPAM INJ 2 MG/ML VIAL 0.5 MG IV PUSH (11:08)
[2020-01-25 11:50] LABS: Glucose Point of Care 123 (65-105)
--- NOTE | 2020-01-25 11:57 | PM.PNPUL ---
Progress Note: A&P Assessment and Plan (1) Acute respiratory failure: Qualifiers: Respiratory failure complication: hypoxia Qualified Code(s): J96.01 - Acute respiratory failure with hypoxia Code(s): J96.00 - Acute respiratory failure, unspecified whether with hypoxia or hypercapnia Status: Acute (2) Pneumonia: Qualifiers: Laterality: right Lung location: unspecified part of lung Pneumonia type: due to unspecified organism Qualified Code(s): J18.9 - Pneumonia, unspecified organism Code(s): J18.9 - Pneumonia, unspecified organism Status: Acute Assessment and Plan: - d/c Ceftriaxone - start Zosyn and Vancomycin for 7-10 days with pharmacy to dose - continue Azithromycin 500 mg daily for 7 days - sputum for gram stain and culture - consider performing a CT chest with IV contrast, may help determine extent of airway obstruction, need for interventional pulmonology and other differentials including radiation pneumonitis and lymphatic spread. - would also recommend restarting systemic steroids. Solumedrol 40 mg IV Q6h (3) Emphysema with chronic bronchitis: Code(s): J44.9 - Chronic obstructive pulmonary disease, unspecified Status: Chronic (4) Malignant neoplasm of unspecified part of unspecified bronchus or lung: Code(s): C34.90 - Malignant neoplasm of unspecified part of unspecified bronchus or lung Status: Chronic (5) Atrial fibrillation: Code(s): I48.91 - Unspecified atrial fibrillation Status: Acute Time Spent With Patient Time with patient: 15 - 25 minutes Subjective Date/time seen: 01/25/20 11:57 Interval history: Pt still feels week, still short of breath, only able to take off BIPAP to eat or drink. Still having cough productive of yellow sputum. CXR shows most likely RLL/RML post obstructive pneumonia but hard to confirm without CT chest. She also has diffuse interstitial changes on the left lung which could represent pneumonia, radiation pneumonitis ( less likely if field of radiation was on right side) and lymphatic spread of malignancy. Review of Systems Review of Systems: All systems reviewed & are unremarkable except as noted in HPI and below Exam Const: General: no acute distress Neck: Neck: supple and no JVD Resp: Auscultation: crackles and diminished lung sounds Cardio: Rhythm: abnormal rhythm Heart sounds: no murmurs GI: Auscultation: normal bowel sounds Neuro: Cognition (Neuro): normal cognition Speech: normal speech Motor exam (neuro): 5/5 motor strength present throughout and Normal motor muscle tone present throughout Extrem: General: normal to inspection, no edema and no pedal edema Objective Data Vital Signs Vital Signs: Vital Signs - 24 hr 01/24/20 12:00 01/24/20 13:41 01/24/20 13:44 Temperature 35.7 C L Pulse Rate 99 87 88 Respiratory Rate 24 H 20 Blood Pressure 98/75 L Pulse Oximetry 95 97 01/24/20 13:50 01/24/20 14:00 01/24/20 16:00 Temperature 36.4 C L Pulse Rate 90 91 92 Respiratory Rate 24 H 16 Blood Pressure 89/59 L Pulse Oximetry 92 01/24/20 17:41 01/24/20 20:00 01/24/20 20:08 Temperature 36.6 C Pulse Rate 95 90 81 Respiratory Rate 18 18 Blood Pressure 98/56 L Pulse Oximetry 97 01/24/20 20:14 01/24/20 20:17 01/24/20 20:18 Temperature Pulse Rate 90 71 79 Respiratory Rate 18 18 Blood Pressure Pulse Oximetry 97 01/24/20 22:00 01/24/20 23:10 01/24/20 23:13 Temperature 36.6 C Pulse Rate 76 87 78 Respiratory Rate 22 H 29 H Blood Pressure 117/79 Pulse Oximetry 95 92 01/25/20 00:00 01/25/20 01:04 01/25/20 01:07 Temperature Pulse Rate 78 88 78 Respiratory Rate 29 H 20 23 H Blood Pressure Pulse Oximetry 92 92 01/25/20 02:00 01/25/20 04:00 01/25/20 05:31 Temperature 36.6 C Pulse Rate 94 88 84 Respiratory Rate 24 H Blood Pressure 114/56 L Pulse Oximetry 93 01/25/20 07:47 01/25/20 07:53
[2020-01-25] MEDS: methylPREDNISolone SOD SUCC 40 MG VIAL IV PUSH ×2 (12:56→16:22)
[2020-01-25 13:14] LABS: Potassium 3.6 mmol/L (3.4-5.0)
--- NOTE | 2020-01-25 14:49 | WPDUROPN2 ---
Subjective Subjective Date/Time Seen: 01/25/20 14:49 I spoke to the nurse about this patient. She is currently admitted with sepsis and bilateral pneumonia. She is on BiPAP. She is having urinary incontinence. She is able to diaper void, but is unable to get up to the toilet regularly. A Garcia catheter was attempted to be placed by the nursing staff for her incontinence. They were unsuccessful due to small introitus. I was contacted. Again she is incontinent but able to void on her own into a diaper. I discussed the situation with the nurse. I would like to avoid risks of urinary tract infection by instrumenting this patient. I would also like to avoid potential exposure of additional healthcare providers in this patient being treated with bilateral pneumonia especially during the ongoing COVID crisis. If she shows signs of urinary retention or skin breakdown from incontinence we can of course readdress this. If this solution is not acceptable I ask that the hospitalist contact me directly to discuss. My phone number is [phone]. Thank you Objective Data Vital Signs Vital Signs: Vital Signs - 24 hr 01/24/20 16:00 01/24/20 17:41 01/24/20 20:00 Temperature 97.5 F L 97.8 F Pulse Rate 92 95 90 Respiratory Rate 16 18 Blood Pressure 89/59 L 98/56 L Pulse Oximetry 92 97 01/24/20 20:08 01/24/20 20:14 01/24/20 20:17 Temperature Pulse Rate 81 90 71 Respiratory Rate 18 18 Blood Pressure Pulse Oximetry 97 01/24/20 20:18 01/24/20 22:00 01/24/20 23:10 Temperature 97.9 F Pulse Rate 79 76 87 Respiratory Rate 18 22 H Blood Pressure 117/79 Pulse Oximetry 95 01/24/20 23:13 01/25/20 00:00 01/25/20 01:04 Temperature Pulse Rate 78 78 88 Respiratory Rate 29 H 29 H 20 Blood Pressure Pulse Oximetry 92 92 01/25/20 01:07 01/25/20 02:00 01/25/20 04:00 Temperature 97.8 F Pulse Rate 78 94 88 Respiratory Rate 23 H 24 H Blood Pressure 114/56 L Pulse Oximetry 92 93 01/25/20 05:31 01/25/20 07:47 01/25/20 07:53 Temperature Pulse Rate 84 102 H 70 Respiratory Rate 26 H Blood Pressure Pulse Oximetry 95 01/25/20 07:55 01/25/20 08:00 01/25/20 08:03 Temperature 97 F L Pulse Rate 102 H 77 Respiratory Rate 23 H 25 H Blood Pressure 126/55 L Pulse Oximetry 95 94 01/25/20 09:58 01/25/20 12:00 01/25/20 13:51 Temperature 96.5 F L Pulse Rate 106 H 87 115 H Respiratory Rate 21 H 25 H Blood Pressure 93/44 L Pulse Oximetry 94 96 01/25/20 13:58 01/25/20 14:01 Temperature Pulse Rate 95 93 Respiratory Rate 25 H Blood Pressure Pulse Oximetry Intake/Output Intake/Output: Intake & Output 01/22/20 01/23/20 01/24/20 01/25/20 23:59 23:59 23:59 23:59 Intake Total 522 5590 1570 Output Total 600 2950 1450 Balance -78 2640 120 Meds/Results Medications: Active Medications Generic Name Dose Route Start Last Admin Trade Name Freq PRN Reason Stop Dose Admin Acetaminophen 650 mg 01/23/20 18:48 Tylenol Tablet PO Q4H PRN Mild Pain (1-3) or Fever Hydrocodone Bitart/Acetaminophen 1 tab 01/23/20 18:48 01/24/20 04:41 [place] 5-325 Mg PO 1 tab Q4H PRN Administration Pain Rated 4-6 Albuterol 5 mg 01/23/20 20:00 01/25/20 13:51 Albuterol Sulf Neb 2.5mg/0.5ml INHALATION 5 mg Q6HRT HERNANDEZ Administration Albuterol 2.5 mg 01/23/20 23:14 Albuterol Sulf Neb 2.5mg/0.5ml INHALATION Q4HRT PRN Shortness Of Breath Amiodarone HCl 200 mg 01/25/20 17:00 Pacerone PO BID HERNANDEZ Aspirin 325 mg 01/25/20 09:00 01/25/20 07:47 Aspirin Ec PO 325 mg QAM HERNANDEZ Administration Atorvastatin Calcium 80 mg 01/24/20 09:00 01/25/20 07:47 Lipitor PO 80 mg DAILY HERNANDEZ Administration Clotrimazole 10 mg 01/24/20 09:00 01/25/20 12:45 Mycelex Fátima MUCOUS MEM Not Given 5 TIMES DAILY HERNANDEZ Dextrose 12.5 gm 01/24/20 06:45 Dextrose 50% Syringe IV PUSH PRN PRN Hypogl
[2020-01-25] MEDS: AMIODARONE HCL 200 MG TABLET PO (16:21)
[2020-01-25 16:33] LABS: Blood Urea Nitrogen 10 mg/dL (7-17); Calcium 7.6 mg/dL (8.4-10.2); Carbon Dioxide 24 mmol/L (22-30); Chloride 100 mmol/L (98-107); Estimated CRCL calculation 65 ml/min; Estimated Glomerular Filt Rate > 60; Glucose 124 mg/dL (65-105); Potassium 3.6 mmol/L (3.4-5.0); Sodium 133 mmol/L (137-145)
[2020-01-25 17:37] LABS: Glucose Point of Care 125 (65-105)
--- NOTE | 2020-01-25 18:25 | PM.IMPN ---
Progress Note: A&P Assessment and Plan (1) Acute respiratory failure: Qualifiers: Respiratory failure complication: hypoxia Qualified Code(s): J96.01 - Acute respiratory failure with hypoxia Code(s): J96.00 - Acute respiratory failure, unspecified whether with hypoxia or hypercapnia Status: Acute Assessment and Plan: Admit to IMU, telemetry, Continue Bipap support and wean off as tolerated. The patient currently 01/25/20 18:25 Patient is 64-year-old female is known to have Stage IV NSCLC with multiple bilateral pulmonary nodules, patient seen by [facility] and being treated, presented emergency department with complaint shortness of breath and cough is found to have multi focal pneumonia possibly obstructive secondary to mass, patient developed new onset atrial fibrillation most likely secondary to shortness of breath patient seen by building trades teacher started patient on immune drip now the rate is under control, the patient was feeling much better compared to when she arrived denies any chest pain palpitation fever or chills, today was called to assess the patient patient was hypoxic on BiPAP consulted rn internal medicine will evaluate the patient and patient may need intubation, after speaking with the patient and giving her option to intubate patient decided against a intubation and has now declare herself DNR, I also spoke with patient's son and informed her mother decision. Patient is clinically stable (2) Severe sepsis: Code(s): A41.9 - Sepsis, unspecified organism; R65.20 - Severe sepsis without septic shock Status: Acute Assessment and Plan: Most likely secondary to pneumonia patient is being treated with Rocephin azithromycin seen by environmental coordinator and added Zosyn (3) Leukocytosis: Qualifiers: Leukocytosis type: unspecified Qualified Code(s): D72.829 - Elevated white blood cell count, unspecified Code(s): D72.829 - Elevated white blood cell count, unspecified Status: Acute Assessment and Plan: Most likely secondary to pneumonia (4) Lactic acidosis: Code(s): E87.2 - Acidosis Status: Acute Assessment and Plan: Most likely 2nd to pneumonia and hypoxia (5) Abnormal glucose: Code(s): R73.09 - Other abnormal glucose Status: Acute Assessment and Plan: Check HgbA1c. (6) Emphysema with chronic bronchitis: Code(s): J44.9 - Chronic obstructive pulmonary disease, unspecified Status: Chronic Assessment and Plan: Patient with a metastasis non small cell carcinoma (7) Malignant neoplasm of unspecified part of unspecified bronchus or lung: Code(s): C34.90 - Malignant neoplasm of unspecified part of unspecified bronchus or lung Status: Chronic (8) Mixed hyperlipidemia: Code(s): E78.2 - Mixed hyperlipidemia Status: Chronic Assessment and Plan: Patient is seen by oncologist and being treated (9) Atrial fibrillation: Code(s): I48.91 - Unspecified atrial fibrillation Status: Acute Assessment and Plan: New onset atrial fibrillation seen by building trades teacher on amiodarone drip rate is trending down [id number] 2, building trades teacher started the patient on Aspirin EC 325mg once clinically stable amiodarone will be switch over to p.o., low-dose metoprolol is added for rate control further recommendation to follow, Subjective Date/time seen: 01/25/20 18:25 Patient is 64-year-old female is known to have Stage IV NSCLC with multiple bilateral pulmonary nodules, patient seen by [facility] and being treated, presented emergency department with complaint shortness of breath and cough is found to have multi focal pneumonia possibly obstructive secondary to mass, patient developed new onset atrial fibrillation most likely secondary to shortness of breath patient seen by building trades teacher started patient on immune drip now the rate is under control, the patient was feeling
[2020-01-25] MEDS: CLOTRIMAZOLE 10 MG TROC MUCOUS MEM (21:00)
[2020-01-25 21:03] LABS: Glucose Point of Care 146 (65-105)
[2020-01-26] VITALS (32 sets, daily range): BP systolic 110–136; BP diastolic 52–65; PULSE 73–150; RESP 19–28; TEMP 35.7–36.8; O2SAT 91–98
[2020-01-26] MEDS: methylPREDNISolone SOD SUCC 40 MG VIAL IV PUSH ×5 (01:10→23:32)
[2020-01-26] MEDS: IPRATROPIUM BR 0.02% INH SOLN 0.5 MG/2.5 ML VIAL INHALATION ×4 (02:34→20:54)
[2020-01-26] MEDS: ALBUTEROL SULFATE NEB 2.5 MG/0.5 ML INH 5 MG INHALATION ×4 (02:34→20:54)
[2020-01-26 07:06] LABS: Hematocrit 38.8 % (37.0-47.0); Hemoglobin 11.5 g/dL (12.0-15.0); Mean Corpuscular HGB Conc 29.6 g/dl (32-36); Mean Corpuscular Hemoglobin 25.7 pg (26-34); Mean Corpuscular Volume 86.6 fl (80-100); Mean Platelet Volume 11.8 fl (7.4-10.4); Platelet Count Result 125 k/mm3 (150-375); Red Blood Count 4.48 M/mm3 (4.2-5.4); Red Cell Distribution Width 17.2 % (11.5-14.5); White Blood Count 16.8 K/mm3 (4.5-10.0)
[2020-01-26 07:08] LABS: Blood Urea Nitrogen 10 mg/dL (7-17); Calcium 7.6 mg/dL (8.4-10.2); Carbon Dioxide 28 mmol/L (22-30); Chloride 104 mmol/L (98-107); Estimated CRCL calculation 82 ml/min; Estimated Glomerular Filt Rate > 60; Glucose 127 mg/dL (65-105); Potassium 3.6 mmol/L (3.4-5.0); Sodium 138 mmol/L (137-145)
--- NOTE | 2020-01-26 07:36 | ECG_ITS ---
Measurements Intervals [place] Rate: 94 P: 48 MA: 163 QRS: 89 QRSD: 88 T: 70 QT: 316 QTc: 397 Interpretive Statements SINUS RHYTHM VENTRICULAR PREMATURE COMPLEX LOW QRS VOLTAGE- DIFFUSE LEADS NONSPECIFIC T-WAVE ABNORMALITY- LATERAL LEADS BASELINE ARTIFACT- I, III, AVR, AVL, V3-V5 BORDERLINE ECG Electronically Signed On 01-26-2020 10:13:44 CDT by Thomas Yeung D.O.
[2020-01-26 07:48] LABS: Band Neutrophils Percent 7 % (0-6); Eosinophils Absolute Manual 0.33 K/mm3 (0.02-0.5); Eosinophils Percent Manual 2 % (0-4); Lymphocytes Absolute Manual 0.16 K/mm3 (1.1-4.5); Neutrophils Absolute Manual 16.29 K/mm3 (1.7-7.2); Neutrophils Percent Manual 90 % (46-73); Total Cells Counted 100
[2020-01-26 07:49] LABS: Anisocytosis 1+ (NORMAL); Ovalocytes 1+ (NORMAL); Platelet Estimate Adequate (Adequate); Poikilocytosis 1+ (NORMAL)
[2020-01-26 07:57] LABS: Glucose Point of Care 109 (65-105)
[2020-01-26] MEDS: ATORVASTATIN 40 MG TABLET 80 MG PO (08:05)
[2020-01-26] MEDS: ASPIRIN 325 MG ENTERIC TABLET PO (08:06)
[2020-01-26] MEDS: AMIODARONE HCL 200 MG TABLET PO (08:06)
[2020-01-26] MEDS: CLOTRIMAZOLE 10 MG TROC MUCOUS MEM ×2 (08:06→20:20)
[2020-01-26] MEDS: GABAPENTIN 300 MG CAPSULE PO ×3 (08:06→16:19)
[2020-01-26] MEDS: DULOXETINE HCL 30 MG CAPSULE.DR 60 MG PO (08:06)
[2020-01-26] MEDS: FOLIC ACID 1 MG TABLET PO (08:06)
[2020-01-26] MEDS: AMIODARONE 360 MG/D5W 200 ML 360 MG/200 ML BAG 16.7 MG IV CONT ×2 (08:07→20:20)
--- NOTE | 2020-01-26 08:31 | PM.PNCARD ---
Progress Note: A&P Assessment and Plan (1) Atrial fibrillation: Code(s): I48.91 - Unspecified atrial fibrillation Status: Acute Assessment and Plan: New onset atrial fibrillation with RVR. Due to COPD/respiratory failure and possible sepsis. [id number] 2, therefore, Aspirin EC 325 mg daily will be sufficient to minimize cardioembolism. Given low normal BP, was started on Amiodarone load and drip to cardiovert to sinus rhythm or at least slow HR, which has restored sinus rhythm with a few recurrences. On Metoprolol 12.5 mg q 12 hours with parameters to hold if SBP<100 mmHg. After 24 Continue Amiodarone drip for a total of 24 hours which is tonight at around 8 pm, then discontinue and resume Amiodarone 400 mg PO BID. Obtain EKG to check QT interval. (2) Acute respiratory failure: Qualifiers: Respiratory failure complication: hypoxia Qualified Code(s): J96.01 - Acute respiratory failure with hypoxia Code(s): J96.00 - Acute respiratory failure, unspecified whether with hypoxia or hypercapnia Status: Acute (3) Pneumonia: Qualifiers: Laterality: right Lung location: unspecified part of lung Pneumonia type: due to unspecified organism Qualified Code(s): J18.9 - Pneumonia, unspecified organism Code(s): J18.9 - Pneumonia, unspecified organism Status: Acute Assessment and Plan: On antibiotics. (4) Mixed hyperlipidemia: Code(s): E78.2 - Mixed hyperlipidemia Status: Chronic (5) History of endovascular stent graft for abdominal aortic aneurysm (AAA): Code(s): Z95.828 - Presence of other vascular implants and grafts Status: Acute Subjective Date/time seen: 01/26/20 08:31 Denies chest pain. Has sob on BiPAP currently. Exam Const: General: no acute distress Neck: Neck: no JVD Carotids: no bruits Resp: Auscultation: rales, rhonchi and diminished lung sounds Cardio: Rate: regular rate Rhythm: regular rhythm Heart sounds: no murmurs GI: Inspection: non-distended Neuro: Speech: normal speech Extrem: Right lower extremity: no edema Left lower extremity: no edema Objective Data Vital Signs Vital Signs: Vital Signs - 24 hr 01/25/20 09:58 01/25/20 12:00 01/25/20 13:51 Temperature 96.5 F L Pulse Rate 106 H 87 115 H Respiratory Rate 21 H 25 H Blood Pressure 93/44 L Pulse Oximetry 94 96 01/25/20 13:58 01/25/20 14:01 01/25/20 16:00 Temperature 96.4 F L Pulse Rate 95 93 86 Respiratory Rate 25 H 23 H Blood Pressure 131/61 Pulse Oximetry 96 01/25/20 16:21 01/25/20 18:00 01/25/20 20:00 Temperature 97.9 F Pulse Rate 95 88 155 H Respiratory Rate 20 Blood Pressure 94/64 L Pulse Oximetry 94 01/25/20 20:25 01/25/20 20:26 01/25/20 20:36 Temperature Pulse Rate 131 H 136 H 147 H Respiratory Rate 21 H 21 H 20 Blood Pressure Pulse Oximetry 94 01/25/20 21:00 01/25/20 22:00 01/25/20 23:55 Temperature 97.6 F Pulse Rate 144 H 158 H 136 H Respiratory Rate 24 H Blood Pressure 112/80 Pulse Oximetry 98 01/26/20 00:00 01/26/20 02:00 01/26/20 02:36 Temperature Pulse Rate 150 H 74 76 Respiratory Rate 24 H 21 H Blood Pressure Pulse Oximetry 98 01/26/20 02:43 01/26/20 02:45 01/26/20 04:00 Temperature 97.9 F Pulse Rate 78 76 75 Respiratory Rate 23 H 23 H 20 Blood Pressure 131/60 Pulse Oximetry 94 96 01/26/20 05:47 01/26/20 08:06 01/26/20 08:08 Temperature 98.3 F Pulse Rate 76 84 84 Respiratory Rate 22 H Blood Pressure 119/60 Pulse Oximetry 98 Intake/Output Intake/Output: Intake & Output 01/23/20 01/24/20 01/25/20 01/26/20 23:59 23:59 23:59 23:59 Intake Total 522 7690 2920 2730 Output Total 600 2950 2950 2800 Balance -78 2640 -30 -70 Meds/Results Medications: Active Medications Generic Name Dose Route Start Last Admin Trade Name Freq PRN Reason Stop Dose Admin Acetaminophen 650 mg 01/23/20 18:48 Samir
--- NOTE | 2020-01-26 11:03 | PM.IMPN ---
Progress Note: A&P Assessment and Plan (1) Acute respiratory failure: Qualifiers: Respiratory failure complication: hypoxia Qualified Code(s): J96.01 - Acute respiratory failure with hypoxia Code(s): J96.00 - Acute respiratory failure, unspecified whether with hypoxia or hypercapnia Status: Acute Assessment and Plan: Admit to IMU, telemetry, Continue Bipap support and wean off as tolerated. The patient currently 01/25/20 18:25 Patient is 64-year-old female is known to have Stage IV NSCLC with multiple bilateral pulmonary nodules, patient seen by [facility] and being treated, presented emergency department with complaint shortness of breath and cough is found to have multi focal pneumonia possibly obstructive secondary to mass, patient developed new onset atrial fibrillation most likely secondary to shortness of breath patient seen by slip tender started patient on immune drip now the rate is under control, the patient was feeling much better compared to when she arrived denies any chest pain palpitation fever or chills, today was called to assess the patient patient was hypoxic on BiPAP consulted dye mixer will evaluate the patient and patient may need intubation, after speaking with the patient and giving her option to intubate patient decided against a intubation and has now declare herself DNR, I also spoke with patient's son and informed her mother decision. Patient is clinically stable (2) Atrial fibrillation: Qualifiers: Atrial fibrillation type: paroxysmal Qualified Code(s): I48.0 - Paroxysmal atrial fibrillation Code(s): I48.91 - Unspecified atrial fibrillation Status: Acute Assessment and Plan: New onset atrial fibrillation seen by slip tender on amiodarone drip rate is trending down [id number] 2, slip tender started the patient on Aspirin EC 325mg once clinically stable amiodarone will be switch over to p.o., low-dose metoprolol is added for rate control further recommendation to follow, (3) Severe sepsis: Code(s): A41.9 - Sepsis, unspecified organism; R65.20 - Severe sepsis without septic shock Status: Acute Assessment and Plan: Most likely secondary to pneumonia patient is being treated with Rocephin azithromycin seen by tissue technician Resolved (4) Leukocytosis: Qualifiers: Leukocytosis type: unspecified Qualified Code(s): D72.829 - Elevated white blood cell count, unspecified Code(s): D72.829 - Elevated white blood cell count, unspecified Status: Acute Assessment and Plan: Most likely secondary to pneumonia (5) Lactic acidosis: Code(s): E87.2 - Acidosis Status: Acute Assessment and Plan: Most likely 2nd to pneumonia and hypoxia resolved (6) Abnormal glucose: Code(s): R73.09 - Other abnormal glucose Status: Acute Assessment and Plan: 01/25 FBS 109 (7) Emphysema with chronic bronchitis: Code(s): J44.9 - Chronic obstructive pulmonary disease, unspecified Status: Chronic Assessment and Plan: Now bipap dependent (8) Malignant neoplasm of unspecified part of unspecified bronchus or lung: Code(s): C34.90 - Malignant neoplasm of unspecified part of unspecified bronchus or lung Status: Chronic Assessment and Plan: AdenoCA with mets, stage 4 Wants to transition to hospice upon discharge Subjective Date/time seen: 01/26/20 11:03 Interval history: Stage 4 lung CA. Completed 10 RT. No chemo. Recent pneumonia at [place]. Readmitted here with dyspnea. On zosyn. Amio iv for paf. Now bipap dependent. SOB at rest, severe with any exertion, including conversation. Wants comfort care. I can't live like this. Review of Systems Review of Systems: All systems reviewed & are unremarkable except as noted in HPI and below Exam Narrative: Exam Narrative: HEENT: EOMI, PERRL, pharyngeal mucosa pink and intact NECK: No JVD
[2020-01-26] MEDS: METOPROLOL TARTRATE 12.5 MG TABLET PO ×2 (11:17→20:19)
[2020-01-26] MEDS: INSULIN ASPART (*BKC) 100 UNITS/ML SUB-Q (11:49)
[2020-01-26 12:11] LABS: Glucose Point of Care 226 (65-105)
--- NOTE | 2020-01-26 12:31 | PM.PNPUL ---
Progress Note: A&P Assessment and Plan (1) Acute respiratory failure: Qualifiers: Respiratory failure complication: hypoxia Qualified Code(s): J96.01 - Acute respiratory failure with hypoxia Code(s): J96.00 - Acute respiratory failure, unspecified whether with hypoxia or hypercapnia Status: Acute Assessment and Plan: - attempt switch to high flow nasal cannula 60 liters and 100% and titrate FiO2 for sats of > 88%. - can use high flow during the day and BIPAP at night to optimize patient comfort. - patient is considering hospice. Concerned about family not being able to see her. This may be influencing her decision to start hospice/comfort measures. (2) Pneumonia: Qualifiers: Laterality: right Lung location: unspecified part of lung Pneumonia type: due to unspecified organism Qualified Code(s): J18.9 - Pneumonia, unspecified organism Code(s): J18.9 - Pneumonia, unspecified organism Status: Acute Assessment and Plan: - d/c Ceftriaxone - start Zosyn and Vancomycin for 7-10 days with pharmacy to dose - continue Azithromycin 500 mg daily for 7 days - sputum for gram stain and culture - consider performing a CT chest with IV contrast, may help determine extent of airway obstruction, need for interventional pulmonology and other differentials including radiation pneumonitis and lymphatic spread. - would also recommend restarting systemic steroids. Solumedrol 40 mg IV Q6h (3) Emphysema with chronic bronchitis: Code(s): J44.9 - Chronic obstructive pulmonary disease, unspecified Status: Chronic (4) Malignant neoplasm of unspecified part of unspecified bronchus or lung: Code(s): C34.90 - Malignant neoplasm of unspecified part of unspecified bronchus or lung Status: Chronic (5) Atrial fibrillation: Qualifiers: Atrial fibrillation type: paroxysmal Qualified Code(s): I48.0 - Paroxysmal atrial fibrillation Code(s): I48.91 - Unspecified atrial fibrillation Status: Acute Subjective Date/time seen: 01/26/20 12:31 Interval history: Feels the same as yesterday. Still short of breath and coughing. Feels comfortable with BIPAP. CXR today when compared to 01/23/20 shows no significant change. WBC is decreasing steadily Review of Systems Review of Systems: All systems reviewed & are unremarkable except as noted in HPI and below Exam Const: General: uncomfortable Neck: Neck: supple and no JVD Resp: Auscultation: rhonchi (left chest field worse than right ) Cardio: Rhythm: abnormal rhythm Heart sounds: no murmurs GI: Auscultation: normal bowel sounds Skin: General skin exam: normal color Neuro: Cognition (Neuro): normal cognition Speech: normal speech Extrem: General: normal to inspection Psych: Affect: Anxious affect present Objective Data Vital Signs Vital Signs: Vital Signs - 24 hr 01/25/20 13:51 01/25/20 13:58 01/25/20 14:01 Temperature Pulse Rate 115 H 95 93 Respiratory Rate 25 H 25 H Blood Pressure Pulse Oximetry 96 01/25/20 16:00 01/25/20 16:21 01/25/20 18:00 Temperature 35.8 C L Pulse Rate 86 95 88 Respiratory Rate 23 H Blood Pressure 131/61 Pulse Oximetry 96 01/25/20 20:00 01/25/20 20:25 01/25/20 20:26 Temperature 36.6 C Pulse Rate 155 H 131 H 136 H Respiratory Rate 20 21 H 21 H Blood Pressure 94/64 L Pulse Oximetry 94 94 01/25/20 20:36 01/25/20 21:00 01/25/20 22:00 Temperature Pulse Rate 147 H 144 H 158 H Respiratory Rate 20 Blood Pressure Pulse Oximetry 01/25/20 23:55 01/26/20 00:00 01/26/20 02:00 Temperature 36.4 C Pulse Rate 136 H 150 H 74 Respiratory Rate 24 H 24 H Blood Pressure 112/80 Pulse Oximetry 98 98 01/26/20 02:36 01/26/20 02:43 01/26/20 02:45 Temperature Pulse Rate 76 78 76 Respiratory Rate 21 H 23 H 23 H Blood Pressure Pulse Oximetry 94 01/26/20 04:00 01/26/20 05:47 01/26/20 08:00 [place]
[2020-01-26 15:21] LABS: Legionella pneumophila Ag Ur Not Detected (Not Detected)
[2020-01-26] MEDS: ALUM/CAMP/MENTH/PHENOL/SALICY (CARMEX) 7.5 GM JAR 1 APPLIC TOPICAL (15:35)
[2020-01-26] MEDS: AMIODARONE HCL 200 MG TABLET 400 MG PO (16:19)
[2020-01-26] MEDS: LORAZEPAM 0.5 MG TABLET PO (16:19)
[2020-01-26 16:47] LABS: Glucose Point of Care 161 (65-105)
[2020-01-26 20:21] LABS: Glucose Point of Care 173 (65-105)
[2020-01-27] VITALS (33 sets, daily range): BP systolic 103–133; BP diastolic 42–73; PULSE 54–165; RESP 15–32; TEMP 36.2–36.6; O2SAT 90–94
[2020-01-27] MEDS: ALBUTEROL SULFATE NEB 2.5 MG/0.5 ML INH 5 MG INHALATION ×4 (01:48→19:48)
[2020-01-27] MEDS: IPRATROPIUM BR 0.02% INH SOLN 0.5 MG/2.5 ML VIAL INHALATION ×4 (01:48→19:48)
[2020-01-27 01:57] LABS: Vancomycin Trough 10.9 ug/mL (10.0-20.0)
[2020-01-27 05:10] LABS: Hematocrit 39.4 % (37.0-47.0); Hemoglobin 11.8 g/dL (12.0-15.0); Mean Corpuscular HGB Conc 29.9 g/dl (32-36); Mean Corpuscular Hemoglobin 25.7 pg (26-34); Mean Corpuscular Volume 85.8 fl (80-100); Mean Platelet Volume 11.5 fl (7.4-10.4); Platelet Count Result 201 k/mm3 (150-375); Red Blood Count 4.59 M/mm3 (4.2-5.4); Red Cell Distribution Width 17.5 % (11.5-14.5); White Blood Count 24.4 K/mm3 (4.5-10.0)
[2020-01-27 05:24] LABS: Blood Urea Nitrogen 10 mg/dL (7-17); Calcium 8.3 mg/dL (8.4-10.2); Carbon Dioxide 32 mmol/L (22-30); Chloride 102 mmol/L (98-107); Estimated CRCL calculation 76 ml/min; Estimated Glomerular Filt Rate > 60; Glucose 176 mg/dL (65-105); Potassium 3.2 mmol/L (3.4-5.0); Sodium 139 mmol/L (137-145)
[2020-01-27 05:43] LABS: Band Neutrophils Percent 15 % (0-6); Lymphocytes Absolute Manual 0.97 K/mm3 (1.1-4.5); Monocytes Absolute Manual 1.46 K/mm3 (0.1-0.90); Monocytes Percent Manual 6 % (3-9); Neutrophils Absolute Manual 21.96 K/mm3 (1.7-7.2); Neutrophils Percent Manual 75 % (46-73); Platelet Estimate Adequate (Adequate); Total Cells Counted 100
[2020-01-27 05:44] LABS: Macrocytosis 1+ (NORMAL); Microcytosis 1+ (NORMAL)
[2020-01-27] MEDS: methylPREDNISolone SOD SUCC 40 MG VIAL IV PUSH (05:51)
--- NOTE | 2020-01-27 07:30 | ECG_ITS ---
Measurements Intervals [place] Rate: 81 P: 36 NE: 140 QRS: 79 QRSD: 83 T: 75 QT: 377 QTc: 438 Interpretive Statements SINUS RHYTHM LOW QRS VOLTAGE- DIFFUSE LEADS BORDERLINE T WAVE ABNORMALITY- ANT/LAT LEADS ABNORMAL ECG Electronically Signed On 01-27-2020 10:05:49 CDT by Thomas Yeung D.O.
--- NOTE | 2020-01-27 08:15 | PM.PNCARD ---
Progress Note: A&P Assessment and Plan (1) Atrial fibrillation: Qualifiers: Atrial fibrillation type: paroxysmal Qualified Code(s): I48.0 - Paroxysmal atrial fibrillation Code(s): I48.91 - Unspecified atrial fibrillation Status: Acute Assessment and Plan: New onset atrial fibrillation with RVR. Due to COPD/respiratory failure and possible sepsis. [id number] 2, therefore, Aspirin EC 325 mg daily will be sufficient to minimize cardioembolism. Given low normal BP, was started on Amiodarone load and drip to cardiovert to sinus rhythm or at least slow HR, which has restored sinus rhythm with a few recurrences. On Metoprolol 12.5 mg q 12 hours with parameters to hold if SBP<100 mmHg. Stop Amiodarone drip and and resume Amiodarone 400 mg PO BID x 2 weeks then 200 mg BID x 2 weeks then 200 mg daily. Obtain EKG to check QT interval. Replete potassium. (2) Acute respiratory failure: Qualifiers: Respiratory failure complication: hypoxia Qualified Code(s): J96.01 - Acute respiratory failure with hypoxia Code(s): J96.00 - Acute respiratory failure, unspecified whether with hypoxia or hypercapnia Status: Acute (3) Pneumonia: Qualifiers: Laterality: right Lung location: unspecified part of lung Pneumonia type: due to unspecified organism Qualified Code(s): J18.9 - Pneumonia, unspecified organism Code(s): J18.9 - Pneumonia, unspecified organism Status: Acute Assessment and Plan: On antibiotics. (4) Mixed hyperlipidemia: Code(s): E78.2 - Mixed hyperlipidemia Status: Chronic (5) History of endovascular stent graft for abdominal aortic aneurysm (AAA): Code(s): Z95.828 - Presence of other vascular implants and grafts Status: Acute Subjective Date/time seen: 01/27/20 08:15 Denies chest pain. Has sob, currently on BiPAP. Exam Const: General: comfortable and no acute distress Neck: Neck: no JVD Carotids: no bruits Resp: Auscultation: rales, rhonchi and diminished lung sounds Cardio: Rate: regular rate Rhythm: regular rhythm Heart sounds: no murmurs GI: Inspection: non-distended Neuro: Speech: normal speech Extrem: Right lower extremity: no edema Left lower extremity: no edema Objective Data Vital Signs Vital Signs: Vital Signs - 24 hr 01/26/20 08:39 01/26/20 08:42 01/26/20 08:46 Temperature Pulse Rate 89 89 88 Respiratory Rate 28 H 28 H 24 H Blood Pressure Pulse Oximetry 95 01/26/20 09:52 01/26/20 11:17 01/26/20 12:00 Temperature Pulse Rate 94 84 87 Respiratory Rate Blood Pressure Pulse Oximetry 01/26/20 12:17 01/26/20 14:00 01/26/20 14:33 Temperature 96.3 F L Pulse Rate 89 87 85 Respiratory Rate 24 H 20 Blood Pressure 136/65 Pulse Oximetry 93 01/26/20 14:45 01/26/20 14:46 01/26/20 16:00 Temperature Pulse Rate 86 86 83 Respiratory Rate 24 H 26 H Blood Pressure Pulse Oximetry 94 01/26/20 16:19 01/26/20 16:35 01/26/20 18:00 Temperature 96.3 F L Pulse Rate 96 82 87 Respiratory Rate 24 H Blood Pressure 112/52 L Pulse Oximetry 94 01/26/20 20:00 01/26/20 20:12 01/26/20 20:19 Temperature 97.4 F L Pulse Rate 79 79 76 Respiratory Rate 20 Blood Pressure 114/58 L Pulse Oximetry 91 01/26/20 20:54 01/26/20 21:04 01/26/20 22:00 Temperature Pulse Rate 79 76 84 Respiratory Rate 22 H 20 Blood Pressure Pulse Oximetry 93 01/26/20 23:58 01/27/20 00:00 01/27/20 01:48 Temperature 97.0 F L Pulse Rate 73 72 70 Respiratory Rate 19 28 H Blood Pressure 110/54 L Pulse Oximetry 94 93 01/27/20 01:58 01/27/20 02:11 01/27/20 04:00 Temperature 97.4 F L Pulse Rate 72 75 56 L Respiratory Rate 24 H 24 H Blood Pressure 128/65 Pulse Oximetry 94 01/27/20 06:00 Temperature Pulse Rate 84 Respiratory Rate Blood Pressure Pulse Oximetry Intake/Output Intake/Output: Intake & Output
[2020-01-27 08:16] LABS: Glucose Point of Care 116 (65-105)
[2020-01-27] MEDS: DULOXETINE HCL 30 MG CAPSULE.DR 60 MG PO (08:47)
[2020-01-27] MEDS: METOPROLOL TARTRATE 12.5 MG TABLET PO ×2 (08:48→20:07)
[2020-01-27] MEDS: ASPIRIN 325 MG ENTERIC TABLET PO (08:49)
[2020-01-27] MEDS: ATORVASTATIN 40 MG TABLET 80 MG PO (08:49)
[2020-01-27] MEDS: AMIODARONE HCL 200 MG TABLET 400 MG PO ×2 (08:49→17:40)
[2020-01-27] MEDS: GABAPENTIN 300 MG CAPSULE PO ×3 (08:50→17:40)
[2020-01-27] MEDS: TIZANIDINE HCL 4 MG TABLET PO (08:50)
[2020-01-27] MEDS: FOLIC ACID 1 MG TABLET PO (08:50)
--- NOTE | 2020-01-27 10:57 | PM.PNPUL ---
Progress Note: A&P Assessment and Plan (1) Acute respiratory failure: Qualifiers: Respiratory failure complication: hypoxia Qualified Code(s): J96.01 - Acute respiratory failure with hypoxia Code(s): J96.00 - Acute respiratory failure, unspecified whether with hypoxia or hypercapnia Status: Acute Assessment and Plan: - did not tolerate high flow nasal cannula. - can use high flow during the day and BIPAP at night to optimize patient comfort. - patient is considering hospice. Concerned about family not being able to see her. This may be influencing her decision to start hospice/comfort measures. (2) Pneumonia: Qualifiers: Laterality: right Lung location: unspecified part of lung Pneumonia type: due to unspecified organism Qualified Code(s): J18.9 - Pneumonia, unspecified organism Code(s): J18.9 - Pneumonia, unspecified organism Status: Acute Assessment and Plan: Unfortunately not responding as well as we would like. WBC increase is likely from addition of systemic steroids but respiratory failure and hypoxemia is not improving. She's had no fever. - continue Zosyn and Vancomycin for 7-10 days with pharmacy to dose - continue Azithromycin 500 mg daily for 7 days - sputum for gram stain and culture was negative - consider performing a CT chest with IV contrast, may help determine extent of airway obstruction, need for interventional pulmonology and other differentials including radiation pneumonitis and lymphatic spread. - continue Solumedrol 40 mg IV Q6h for 5-7 days then discontinue without taper (3) Emphysema with chronic bronchitis: Code(s): J44.9 - Chronic obstructive pulmonary disease, unspecified Status: Chronic (4) Malignant neoplasm of unspecified part of unspecified bronchus or lung: Code(s): C34.90 - Malignant neoplasm of unspecified part of unspecified bronchus or lung Status: Chronic (5) Atrial fibrillation: Qualifiers: Atrial fibrillation type: paroxysmal Qualified Code(s): I48.0 - Paroxysmal atrial fibrillation Code(s): I48.91 - Unspecified atrial fibrillation Status: Acute Subjective Date/time seen: 01/27/20 10:57 Interval history: Not feeling any better. Oxygen drops with minimal time off BIPAP she tells me. I'm not sure why she didn't tolerate high flow oxygen. Exam Const: General: no acute distress HENMT: Mouth: Yes dry mucous membranes Neck: Neck: supple and no JVD Cardio: Rhythm: abnormal rhythm Heart sounds: no murmurs GI: Auscultation: normal bowel sounds Skin: General skin exam: normal color and no rashes or lesions noted Neuro: Speech: normal speech Extrem: General: normal to inspection, no edema and no pedal edema Psych: Affect: Sad affect present and Anxious affect present Thought content: Yes Depressive thoughts present Objective Data Vital Signs Vital Signs: Vital Signs - 24 hr 01/26/20 11:17 01/26/20 12:00 01/26/20 12:17 Temperature 35.7 C L Pulse Rate 84 87 89 Respiratory Rate 24 H Blood Pressure 136/65 Pulse Oximetry 93 01/26/20 14:00 01/26/20 14:33 01/26/20 14:45 Temperature Pulse Rate 87 85 86 Respiratory Rate 20 24 H Blood Pressure Pulse Oximetry 01/26/20 14:46 01/26/20 16:00 01/26/20 16:19 Temperature Pulse Rate 86 83 96 Respiratory Rate 26 H Blood Pressure Pulse Oximetry 94 01/26/20 16:35 01/26/20 18:00 01/26/20 20:00 Temperature 35.7 C L Pulse Rate 82 87 79 Respiratory Rate 24 H Blood Pressure 112/52 L Pulse Oximetry 94 01/26/20 20:12 01/26/20 20:19 01/26/20 20:54 Temperature 36.3 C L Pulse Rate 79 76 79 Respiratory Rate 20 22 H Blood Pressure 114/58 L Pulse Oximetry 91 93 01/26/20 21:04 01/26/20 22:00 01/26/20 23:58 Temperature 36.1 C L Pulse Rate 76 84 73 Respiratory Rate 20 19 Blood Pressure 110/54 L Pulse Oximetry 94 01/27/20 00:00 01/27/20 01:48
[2020-01-27] MEDS: POTASSIUM CHLORIDE 20 MEQ TABLET 40 MEQ PO (11:01)
--- NOTE | 2020-01-27 11:51 | PM.IMPN ---
Progress Note: A&P Assessment and Plan (1) Acute respiratory failure: Qualifiers: Respiratory failure complication: hypoxia Qualified Code(s): J96.01 - Acute respiratory failure with hypoxia Code(s): J96.00 - Acute respiratory failure, unspecified whether with hypoxia or hypercapnia Status: Acute Assessment and Plan: Continue bipap support. Pt met with hospice 01/25 and wishes to go home on hospice 01/27. (2) Severe sepsis: Code(s): A41.9 - Sepsis, unspecified organism; R65.20 - Severe sepsis without septic shock Status: Acute Assessment and Plan: w/ tachycardia, tachypnea, leukocytosis, and elevated lactic acid. source of sepsis appears to be pulmonary. Continue IV antibiotics, (3) Leukocytosis: Qualifiers: Leukocytosis type: unspecified Qualified Code(s): D72.829 - Elevated white blood cell count, unspecified Code(s): D72.829 - Elevated white blood cell count, unspecified Status: Acute Assessment and Plan: Secondary to sepsis. (4) Lactic acidosis: Code(s): E87.2 - Acidosis Status: Acute Assessment and Plan: resolved (5) Abnormal glucose: Code(s): R73.09 - Other abnormal glucose Status: Acute Assessment and Plan: SSI (6) Emphysema with chronic bronchitis: Code(s): J44.9 - Chronic obstructive pulmonary disease, unspecified Status: Chronic Assessment and Plan: Continue bronchodilators, steroids, vanc, zosyn. (7) Malignant neoplasm of unspecified part of unspecified bronchus or lung: Code(s): C34.90 - Malignant neoplasm of unspecified part of unspecified bronchus or lung Status: Chronic Assessment and Plan: Patient has completed RT and does not wish to proceed with chemotherapy (8) Pneumonia: Qualifiers: Laterality: right Lung location: unspecified part of lung Pneumonia type: due to unspecified organism Qualified Code(s): J18.9 - Pneumonia, unspecified organism Code(s): J18.9 - Pneumonia, unspecified organism Status: Acute Assessment and Plan: Continue bronchodilators, steroids, vanc, zosyn. Subjective Date/time seen: 01/27/20 11:51 Interval history: Admitted for respiratory failure. Remains BiPAP dependent. Eating poorly. Constipated. Has no specific complaint of pain. No GI or complaints otherwise. No abnormal bleeding. No chest pain. Short of breath with any exertion including conversation. Review of Systems Review of Systems: All systems reviewed & are unremarkable except as noted in HPI and below Exam Narrative: Exam Narrative: HEENT: EOMI, PERRL, pharyngeal mucosa pink and intact NECK: No JVD, adenopathy, or thyromegaly CHEST: Diffuse rhonchi, decr BS RLL HEART: NL S1/S2, regular, no murmur ABDOMEN: BS+, soft, nontender, no mass, no bruits EXTREMITIES: No cyanosis, edema, or clubbing NEUROLOGIC: CN intact and symmetric to inspection. MUSCULOSKELETAL: Tone and strength symmetric. PSYCH: Alert. Oriented to person, place, and time. Objective Data Vital Signs Vital Signs: Vital Signs - 24 hr 01/26/20 12:00 01/26/20 12:17 01/26/20 14:00 Temperature 96.3 F L Pulse Rate 87 89 87 Respiratory Rate 24 H Blood Pressure 136/65 Pulse Oximetry 93 01/26/20 14:33 01/26/20 14:45 01/26/20 14:46 Temperature Pulse Rate 85 86 86 Respiratory Rate 20 24 H 26 H Blood Pressure Pulse Oximetry 94 01/26/20 16:00 01/26/20 16:19 01/26/20 16:35 Temperature 96.3 F L Pulse Rate 83 96 82 Respiratory Rate 24 H Blood Pressure 112/52 L Pulse Oximetry 94 01/26/20 18:00 01/26/20 20:00 01/26/20 20:12 Temperature 97.4 F L Pulse Rate 87 79 79 Respiratory Rate 20 Blood Pressure 114/58 L Pulse Oximetry 91 01/26/20 20:19 01/26/20 20:54 01/26/20 21:04 Temperature Pulse Rate 76 79 76 Respiratory Rate 22 H 20 Blood Pressure Pulse Oximetry 93 01/26/20 22:00
[2020-01-27 12:23] LABS: Glucose Point of Care 201 (65-105)
[2020-01-27] MEDS: INSULIN ASPART (*BKC) 100 UNITS/ML SUB-Q (12:39)
[2020-01-27] MEDS: methylPREDNISolone SOD SUCC 125 MG VIAL 80 MG IV PUSH (12:47)
[2020-01-27] MEDS: MAGNESIUM CITRATE 300 ML BTL 150 ML PO (14:11)
[2020-01-27 14:17] LABS: Glucose Point of Care 234 (65-105)
[2020-01-27] MEDS: LORAZEPAM 0.5 MG TABLET PO ×2 (14:34→22:03)
[2020-01-27 16:27] LABS: Glucose Point of Care 162 (65-105)
[2020-01-27] MEDS: methylPREDNISolone SOD SUCC 125 MG VIAL 60 MG IV PUSH (20:07)
[2020-01-27 20:13] LABS: Pneumococcal Antigen Urine Not Detected (Not Detected)
[2020-01-27 20:17] LABS: Glucose Point of Care 193 (65-105)
[2020-01-27] MEDS: AMIODARONE 360 MG/D5W 200 ML 360 MG/200 ML BAG 16.7 MG IV CONT (22:03)
[2020-01-28] VITALS (19 sets, daily range): BP systolic 113–138; BP diastolic 57–65; PULSE 77–89; RESP 15–29; TEMP 35.7–36.8; O2SAT 91–92
[2020-01-28] MEDS: IPRATROPIUM BR 0.02% INH SOLN 0.5 MG/2.5 ML VIAL INHALATION ×3 (01:15→14:35)
[2020-01-28] MEDS: ALBUTEROL SULFATE NEB 2.5 MG/0.5 ML INH 5 MG INHALATION ×3 (01:15→14:35)
[2020-01-28 05:09] LABS: Hematocrit 36.4 % (37.0-47.0); Hemoglobin 11.4 g/dL (12.0-15.0); Mean Corpuscular HGB Conc 31.3 g/dl (32-36); Mean Corpuscular Hemoglobin 26.4 pg (26-34); Mean Corpuscular Volume 84.3 fl (80-100); Mean Platelet Volume 11.6 fl (7.4-10.4); Platelet Count Result 175 k/mm3 (150-375); Red Blood Count 4.32 M/mm3 (4.2-5.4); Red Cell Distribution Width 17.5 % (11.5-14.5); White Blood Count 20.6 K/mm3 (4.5-10.0)
[2020-01-28 05:19] LABS: Blood Urea Nitrogen 11 mg/dL (7-17); Calcium 7.9 mg/dL (8.4-10.2); Carbon Dioxide 31 mmol/L (22-30); Chloride 101 mmol/L (98-107); Estimated CRCL calculation 60 ml/min; Estimated Glomerular Filt Rate 56; Glucose 149 mg/dL (65-105); Magnesium 2.9 mg/dL (1.6-2.3); Potassium 3.7 mmol/L (3.4-5.0); Sodium 139 mmol/L (137-145)
[2020-01-28 05:45] LABS: Band Neutrophils Percent 11 % (0-6); Lymphocytes Absolute Manual 0.61 K/mm3 (1.1-4.5); Monocytes Absolute Manual 1.03 K/mm3 (0.1-0.90); Monocytes Percent Manual 5 % (3-9); Neutrophils Absolute Manual 18.95 K/mm3 (1.7-7.2); Neutrophils Percent Manual 81 % (46-73); Platelet Estimate Adequate (Adequate); Total Cells Counted 100
[2020-01-28 05:46] LABS: Macrocytosis 1+ (NORMAL); Microcytosis 1+ (NORMAL)
[2020-01-28 08:03] LABS: Glucose Point of Care 126 (65-105)
--- NOTE | 2020-01-28 08:41 | PM.PNCARD ---
Progress Note: A&P Assessment and Plan (1) Atrial fibrillation: Qualifiers: Atrial fibrillation type: paroxysmal Qualified Code(s): I48.0 - Paroxysmal atrial fibrillation Code(s): I48.91 - Unspecified atrial fibrillation Status: Acute Assessment and Plan: New onset atrial fibrillation with RVR. Due to COPD/respiratory failure and possible sepsis. [id number], therefore, Aspirin EC 325 mg daily will be sufficient to minimize cardioembolism. Given low normal BP, was started on Amiodarone load and drip to cardiovert to sinus rhythm or at least slow HR, which has restored sinus rhythm with a few recurrences. On Metoprolol 12.5 mg q 12 hours with parameters to hold if SBP<100 mmHg. Recurrence of atrial fib with RVR. As she continues Amiodarone she should have less and less of recurrences. Stop Amiodarone drip and and resume Amiodarone 400 mg PO BID x 2 weeks then 200 mg BID x 2 weeks then 200 mg daily. (2) Acute respiratory failure: Qualifiers: Respiratory failure complication: hypoxia Qualified Code(s): J96.01 - Acute respiratory failure with hypoxia Code(s): J96.00 - Acute respiratory failure, unspecified whether with hypoxia or hypercapnia Status: Acute (3) Pneumonia: Qualifiers: Laterality: right Lung location: unspecified part of lung Pneumonia type: due to unspecified organism Qualified Code(s): J18.9 - Pneumonia, unspecified organism Code(s): J18.9 - Pneumonia, unspecified organism Status: Acute Assessment and Plan: On antibiotics. (4) Mixed hyperlipidemia: Code(s): E78.2 - Mixed hyperlipidemia Status: Chronic (5) History of endovascular stent graft for abdominal aortic aneurysm (AAA): Code(s): Z95.828 - Presence of other vascular implants and grafts Status: Acute Subjective Date/time seen: 01/28/20 08:41 Denies chest pain. SOB is the same on BiPAP currently. Exam Const: General: comfortable and no acute distress Neck: Neck: no JVD Carotids: no bruits Resp: Auscultation: rales, rhonchi, wheezes and diminished lung sounds Cardio: Rate: regular rate Rhythm: regular rhythm Heart sounds: no murmurs GI: Inspection: non-distended Neuro: Speech: normal speech Extrem: Right lower extremity: no edema Left lower extremity: no edema Objective Data Vital Signs Vital Signs: Vital Signs - 24 hr 01/27/20 08:48 01/27/20 08:49 01/27/20 10:00 Temperature Pulse Rate 63 63 75 Respiratory Rate Blood Pressure Pulse Oximetry 01/27/20 11:10 01/27/20 12:25 01/27/20 12:45 Temperature 97.9 F Pulse Rate 99 89 88 Respiratory Rate 32 H 22 H Blood Pressure 103/42 L Pulse Oximetry 92 94 01/27/20 13:40 01/27/20 13:42 01/27/20 14:00 Temperature Pulse Rate 87 87 76 Respiratory Rate 15 15 Blood Pressure Pulse Oximetry 92 01/27/20 16:00 01/27/20 16:20 01/27/20 16:50 Temperature 97.6 F Pulse Rate 80 83 94 Respiratory Rate 16 16 Blood Pressure 113/53 L Pulse Oximetry 92 93 01/27/20 17:40 01/27/20 18:00 01/27/20 19:48 Temperature Pulse Rate 82 90 139 H Respiratory Rate 29 H Blood Pressure Pulse Oximetry 90 01/27/20 19:53 01/27/20 19:55 01/27/20 19:57 Temperature 97.6 F Pulse Rate 139 H 89 Respiratory Rate 29 H 22 H Blood Pressure 133/73 Pulse Oximetry 90 91 01/27/20 20:00 01/27/20 20:03 01/27/20 20:07 Temperature Pulse Rate 165 H 141 H 155 H Respiratory Rate 25 H 25 H Blood Pressure Pulse Oximetry 91 01/27/20 22:00 01/27/20 22:55 01/28/20 00:00 Temperature 98.1 F Pulse Rate 158 H 86 86 Respiratory Rate 19 Blood Pressure 113/62 Pulse Oximetry 92 01/28/20 01:15 01/28/20 01:30 01/28/20 01:31 Temperature Pulse Rate 79 80 77 Respiratory Rate 15 15 15 Blood Pressure Pulse Oximetry 92 01/28/20 02:00 01/28/20 03:25 01/28/20 03:54 Temperature 98.2 F Pulse Rate 78 89 82 R
--- NOTE | 2020-01-28 08:51 | PM.DS ---
DS: Diagnosis Admitting Diagnosis Admitting Diagnosis: Acute respiratory failure with hypoxia Discharge Diagnosis (1) Acute respiratory failure: Qualifiers: Respiratory failure complication: hypoxia Qualified Code(s): J96.01 - Acute respiratory failure with hypoxia Code(s): J96.00 - Acute respiratory failure, unspecified whether with hypoxia or hypercapnia Status: Acute Assessment and Plan: Continue bipap support. Steroids, bronchodilators, additional 3 days. Pt met with hospice 01/25 and wishes to go home on hospice 01/27. (2) Severe sepsis: Code(s): A41.9 - Sepsis, unspecified organism; R65.20 - Severe sepsis without septic shock Status: Acute Assessment and Plan: w/ tachycardia, tachypnea, leukocytosis, and elevated lactic acid. source of sepsis appears to be pulmonary. Continue IV antibiotics, (3) Leukocytosis: Qualifiers: Leukocytosis type: unspecified Qualified Code(s): D72.829 - Elevated white blood cell count, unspecified Code(s): D72.829 - Elevated white blood cell count, unspecified Status: Acute Assessment and Plan: Secondary to sepsis and steroids (4) Lactic acidosis: Code(s): E87.2 - Acidosis Status: Acute Assessment and Plan: resolved (5) Abnormal glucose: Code(s): R73.09 - Other abnormal glucose Status: Acute Assessment and Plan: SSI (6) Emphysema with chronic bronchitis: Code(s): J44.9 - Chronic obstructive pulmonary disease, unspecified Status: Chronic Assessment and Plan: Continue bronchodilators, steroids, vanc, zosyn to transition to PO antibiotics at discharge. (7) Malignant neoplasm of unspecified part of unspecified bronchus or lung: Code(s): C34.90 - Malignant neoplasm of unspecified part of unspecified bronchus or lung Status: Chronic Assessment and Plan: Patient has completed RT and does not wish to proceed with chemotherapy (8) Pneumonia: Qualifiers: Laterality: right Lung location: unspecified part of lung Pneumonia type: due to unspecified organism Qualified Code(s): J18.9 - Pneumonia, unspecified organism Code(s): J18.9 - Pneumonia, unspecified organism Status: Acute Assessment and Plan: Continue bronchodilators, steroids Completed vanc, zosyn. 5th day total IV antibiotics. PO antibiotics 3 more days at discharge. DS: Summary Hospital Course Reason for hospitalization: cough and dyspnea Hospital Course: 64 yo female recently stopped smoking Nov 28. She was diagnosed with Stage IV non-small cell lung cancer, managed by Dr. Dong at [facility]. At her Dec 4 visit, she was weak and short of breath, was admitted from the office to [facility] Dec 4 -8 , was not on a vent. She received 10 radiation treatments afterwards, has been feeling weak, short of breath, same cough with small amounts of yellow sputum; she denies fever, chills, N/V/D, loss of smell, change in appetite, sore throat or nasal drainage. She had worsened pulmonary infiltrates. Treated with steroids, bronchodilators, bipap. Initially community acquired antibx, then Vanc and Zosyn for 5 days total. She remained bipap and oxygen dependent. She did not want any further cancer treatments and wished to go home on hospice. BiPAP settings: 14/6, rate 14, FIO2 40%. These were to continue at home. She was seen by cardiology for afib rvr and converted to NRS on amio IV, then PO. She was seen by pulmonary for her end stage respiratory failure. Time Spent with Patient Time attestation: Total time spent providing and/or coordinating discharge services:35 min Exam Narrative: Exam Narrative: HEENT: EOMI, PERRL, pharyngeal mucosa pink and intact NECK: No JVD, adenopathy, or thyromegaly CHEST: Diffuse rhonchi, decr BS RLL HEART: NL S1/S2, regular, no murmur ABDOMEN: BS+, soft, nontender, no mass, no bruits EXTREMITIES: No cyanosis, edema, or clubbing NEUROL
[2020-01-28] MEDS: AMIODARONE HCL 200 MG TABLET 400 MG PO (08:59)
[2020-01-28] MEDS: ASPIRIN 325 MG ENTERIC TABLET PO (09:00)
[2020-01-28] MEDS: methylPREDNISolone SOD SUCC 125 MG VIAL 60 MG IV PUSH (09:00)
[2020-01-28] MEDS: GABAPENTIN 300 MG CAPSULE PO ×2 (09:00→13:20)
[2020-01-28] MEDS: DULOXETINE HCL 30 MG CAPSULE.DR 60 MG PO (09:01)
[2020-01-28] MEDS: ATORVASTATIN 40 MG TABLET 80 MG PO (09:02)
[2020-01-28] MEDS: FOLIC ACID 1 MG TABLET PO (09:03)
[2020-01-28] MEDS: METOPROLOL TARTRATE 12.5 MG TABLET PO (11:08)
--- NOTE | 2020-01-28 11:55 | PCNFU ---
Nutrition Follow-Up Complete: Involuntary weight loss related to lung cancer as evidenced by reported weight loss. Patient to consume 50% of meals/supplements or more Goal:not met Pt current nutrition is Regular with Ensure Clear BID. Nutrition recommendation: No new nutrition recommendations. Last recorded weight is 113.4 kg. Bowel Motility: Labs Reviewed:Mg 2.9, Ca 7.9, GFR 56, Glu 149 Meds Noted:Solumedrol, D5W Additional Notes: Pt has decided to d/c CA treatments and has decided to go home with hospice. Follow up in 7 days.
--- NOTE | 2020-01-28 15:44 | PC.NURSE ---
Disharged home via [facility] ambulance WITH CPAP/BIPAP IN USE- SPO2 94%- PT TO GO HOME WITH hospice care- belongings verified with pt- prescriptions for lorazepam and morphine concentrate sent with pt- other medications transmitted to pharmacy
== END 2020-01-28 15:40 | disposition hospice, home (50) | DRG 871 ==
LOC: ANHED 18:57 → ANHIMU 20:52 → ANH3MED 01-29 17:21 → ANHIMU 01-29 17:21
PROVIDERS: Family Medicine; Internal Medicine Critical Care Medicine; Admitting Provider Internal Medicine; Emergency Provider Emergency Medicine; PCP Family Medicine; Visit Provider Internal Medicine
DX: A41.9 Sepsis, unspecified organism (principal); J96.01 Acute respiratory failure with hypoxia; J18.9 Pneumonia, unspecified organism; J98.11 Atelectasis; E87.2 Acidosis; C34.90 Malignant neoplasm of unspecified part of unspecified bronchus or lung; Z68.42 Body mass index [BMI] 45.0-49.9, adult; R65.20 Severe sepsis without septic shock; D72.829 Elevated white blood cell count, unspecified; J43.9 Emphysema, unspecified; E78.2 Mixed hyperlipidemia; E78.5 Hyperlipidemia, unspecified; K76.0 Fatty (change of) liver, not elsewhere classified; I48.91 Unspecified atrial fibrillation; R73.09 Other abnormal glucose; F41.8 Other specified anxiety disorders; R32 Unspecified urinary incontinence; E66.9 Obesity, unspecified; Z95.828 Presence of other vascular implants and grafts; Z87.891 Personal history of nicotine dependence; Z66 Do not resuscitate
CPT/HCPCS: 36415; 36600; 71045; 80048; 80053; 80202; 82375; 82805; 83036; 83050; 83605; 83735; 84132; 85025; 85027; 87040; 87070; 87205; 87449; 87899; 93005; 94002; 94003; 94640; 96365; 96367; 99285; A9270; J0282; J0456; J0696; J1815; J2060; J2543; J2920; J2930; J3370; J3480; J7030